=== PATIENT | female | born 1935 | race African-American/Black ===

== ENCOUNTER → 2016-09-16 10:25 | Outpatient (CLI) | payer MEDICARE, OTHER ==
[2014-04-19 10:01] VITALS: BMI 26.6
[~2016-09-16 10:25] MED LIST: CARAFATE1 G PO; ELIQUIS2.5 MG PO; FLORAJEN3 CAPS460 MG PO; HYDROCODONE-APA1 TAB PO; IPRAT-ALBUT 0.5-3 ML INH; OXYCODONE HCL5 MG PO; ROCEPHIN 1 GM/D51 G1 IV; TYLENOL W/CODEI1 TAB PO; VITAMIN D31000 UNI2 PO; VOLTAREN75 MG PO; ZOFRAN ODT4 MG/UDTAB PO
== END | disposition home or self-care (01) ==
LOC: D.LABREF 10:25
DX: M16.12 Unilateral primary osteoarthritis, left hip (principal); Z11.8 Encounter for screening for other infectious and parasitic diseases

== ENCOUNTER 2016-09-24 09:30 | Inpatient (IN) | payer MEDICARE, OTHER ==
[~2016-09-24] VITALS: Ht 160 cm; Wt 72.7 kg
[2016-09-24 09:11] LABS: BASOPHILS 0.3 % (0.0-2.0); EOSINOPHILS 2.7 % (0-7); HEMOGLOBIN 12.2 g/dL (12-16); IMMATURE GRANULOCYTES 0.3 % (0-5); LYMPHOCYTES 34.2 % (15-50); MCHC 31.3 g/dL (31.0-37.0); MCV 73.4 fL (80.0-100.0); MEAN PLATELET VOLUME 9.8 fL (7.4-10.4); MONOCYTES 6.4 % (2-11); NEUTROPHILS 56.1 % (40-80); PLATELET COUNT 238 10x3/uL (130-400); RBC 5.31 10x6/uL (4.00-5.40); RDW 15.6 % (11.5-14.5); WBC 7.8 10x3/uL (4.8-10.8)
[2016-09-24 09:21] LABS: CALC OSMOLALITY 278 mosm/kg (275-300); CALCIUM 8.5 mg/dL (8.5-10.1); CARBON DIOXIDE 26.9 mmol/L (21.0-32.0); CHLORIDE - SERUM 105 mmol/L (98-107); CREATININE - SERUM 0.7 mg/dL (0.6-1.3); GLUCOSE 94 mg/dL (74-106); POTASSIUM - SERUM 3.4 mmol/L (3.5-5.1); SODIUM 141 mmol/L (136-145); UREA NITROGEN 6 mg/dL (7-18); eGFR NON AFRICAN AMERICAN 85 mL/min (90-120)
[2016-09-24 09:23] LABS: APTT 28.3 SECONDS (22.8-39.4); INR 1.06 (0.85-1.17); PROTIME 13.7 SECONDS (11.6-15.0)
[2016-09-24 09:27] LABS: APPEARANCE CLEAR (CLEAR); BILIRUBIN NEGATIVE (NEGATIVE); COLOR STRAW (YELLOW); GLUCOSE NEGATIVE (NEGATIVE); KETONE NEGATIVE (NEGATIVE); LEUKOCYTE ESTERASE NEGATIVE (NEGATIVE); NITRITE NEGATIVE (NEGATIVE); PROTEIN NEGATIVE (NEGATIVE); SPECIFIC GRAVITY 1.005 (1.005-1.020); UROBILINOGEN NORMAL (NORMAL)
[~2016-09-24 09:30] MED LIST changes: -ELIQUIS2.5 MG PO; -FLORAJEN3 CAPS460 MG PO; -IPRAT-ALBUT 0.5-3 ML INH; -OXYCODONE HCL5 MG PO; -ROCEPHIN 1 GM/D51 G1 IV; -ZOFRAN ODT4 MG/UDTAB PO
[2016-09-29] VITALS (12 sets, daily range): BP systolic 80–114; BP diastolic 47–68; Ht 160 cm; Wt 72.7 kg
--- NOTE | 2016-09-29 10:49 | NUR ---
PEG BOARD POSITIONING DEVICE USED TO PLACE PT IN LAT. POSITION
--- NOTE | 2016-09-29 13:30 | NUR ---
PATIENT RECEIVED TO FLOOR FROM PACU VIA BED. PATIENT RESTING QUIETLY WITH EYES CLOSED. WAKES EASY WHEN SPOKE TO. VITAL SIGNS STABLE. SIDE RAILS UP X2. BED IN LOW POSITION. CALL LIGHT IN REACH. BED ALARM ON. SCDS ON BILATERALLY. DRESSING TO LEFT HIP CLEAN, DRY AND INTACT. ICE PACK IN PLACE.
--- NOTE | 2016-09-29 13:38 | NUR ---
SCHEDULED MEDICATION ADMINISTERED. FAMILY AT BEDSIDE. SIDE RAILS UP X2. BED IN LOW POSITION. CALL LIGHT IN REACH. BED ALARM ON.
[2016-09-29 13:50] LABS: HEMATOCRIT 31.2 % (36.0-48.0); HEMOGLOBIN 9.6 g/dL (12-16); MCH 22.7 pg (26.0-34.0); MCHC 30.8 g/dL (31.0-37.0); MCV 73.9 fL (80.0-100.0); MEAN PLATELET VOLUME 10.1 fL (7.4-10.4); RBC 4.22 10x6/uL (4.00-5.40); RDW 15.6 % (11.5-14.5); WBC 20.3 10x3/uL (4.8-10.8)
--- NOTE | 2016-09-29 14:08 | NUR ---
* Is the patient Alert and Oriented? Yes 0 * How many steps to enter\exit or inside your home? 4 0 * PCP Dr. Humphries 0 * [facility] * Preadmission Environment Home with Family 0 * ADLs Independent 0 * Equipment Shower Chair 0 * List name and contact numbers for known caregivers / representatives who currently or will assist patient after discharge: Spouse - Marshal Chapin 0 * Additional services required to return to the preadmission environment? Yes 0 * Can the patient safely return to the preadmission environment? Yes 0 * Has this patient been hospitalized within the prior 30 days at any hospital? No 09/29/2016 14:14 DCP: Discharge Planning Discharge Planning Comments: 09/29/2016 14:09 DCP: Discharge Planning Patient Name: TYSON CHAPIN Admission Status: Elective Accout number: [id number] Admission Date: 09-29-2016 : 1937 Admission Diagnosis: Attending: MARIUSZ Current LOS: 1 Anticipated DC Date: 09-29-2016 Planned Disposition: Outpatient PT\OT Primary Insurance: MEDICARE A & B Discharge Planning Comments: CM met with patient to assess dc plans/needs. Patient states she lives at home with her , Marshal. She reports she is independent with all ADL's & IADL's. She was not using any assistive devices for mobility. At dc, she will return home with her . She has chosen to come to [facility] for outpatient physical therapy. Appt. scheduled 10/05 @ 1045. OP PT Rx faxed. Rolling walker ordered through [facility] & will be delivered to the hospital prior to discharge. Anticipate DC 10/02. CM will follow. Library Circulation Technician: Maryann Tierney
--- NOTE | 2016-09-29 14:45 | NUR ---
PATIENT ALERT IN BED VISITING WITH FAMILY. C/O PAIN 02/28. OXY IR ADMINISTERED PER PRN ORDER. DENIES FURTHER NEEDS. SIDE RAILS UP X2. BED IN LOW POSITION. CALL LIGHT IN REACH. BED ALARM ON.
--- NOTE | 2016-09-29 17:20 | NUR ---
PATIENT ALERT IN BED TALKING ON PHONE. NO SIGNS OF DISTRESS NOTED. AT BEDSIDE. SIDE RAILS UP X2. BED IN LOW POSITION. CALL LIGHT IN REACH.
[2016-09-30] VITALS (19 sets, daily range): BP systolic 90–123; BP diastolic 40–76
[2016-09-30 06:30] LABS: HEMATOCRIT 23.6 % (36.0-48.0); HEMOGLOBIN 7.6 g/dL (12-16); MCH 23.5 pg (26.0-34.0); MCHC 32.2 g/dL (31.0-37.0); MCV 72.8 fL (80.0-100.0); MEAN PLATELET VOLUME 10.6 fL (7.4-10.4); RBC 3.24 10x6/uL (4.00-5.40); RDW 15.6 % (11.5-14.5); WBC 12.8 10x3/uL (4.8-10.8)
--- NOTE | 2016-09-30 07:00 | NUR ---
PATIENT RECEIVED ALERT IN LOW FELDER POSITION. RESPIRATIONS EVEN AND UNLABORED. SIDE RAILS UP X3. BED IN LOW POSITION. CALL LIGHT IN REACH. BED ALARM ON.
--- NOTE | 2016-09-30 07:28 | NUR ---
PATIENT ALERT IN BED. C/O PAIN 02/28. OXY IR ADMINISTERED PER PRN ORDER. NO FURTHER NEEDS VOICED. SIDE RAILS UP X2. BED IN LOW POSITION. CALL LIGHT IN REACH.
--- NOTE | 2016-09-30 09:04 | NUR ---
PATIENT SITTING UP IN CHAIR AT BEDSIDE VISITING WITH GUEST. NO SIGNS OF DISTRESS NOTED. SCHEDULED MEDICATION ADMINISTERED. NO FURTHER NEEDS VOICED. CALL LIGHT IN REACH.
--- NOTE | 2016-09-30 11:04 | NUR ---
Rehab Prescreening Consult recieved and the chart has been reviewed. She appears to be a good IRF candidate, but is only POD#1. She still has a PT eval pending. Rehab will continue to follow her progress. Doris Mcdaniel RN Clinical Liaison, Rehab
--- NOTE | 2016-09-30 11:45 | NUR ---
PATIENT SITTING UP IN CHAIR AT BEDSIDE. NO SIGNS OF DISTRESS NOTED. FAMILY PRESENT. CALL LIGHT IN REACH.
--- NOTE | 2016-09-30 13:25 | NUR ---
FIRST UNIT PRBC INITIATED PER ORDERS. TRANSFUSING TO RIGHT HAND WITHOUT DIFFICULTY. VITAL SIGNS STABLE. SIDE RAILS UP X2. BED IN LOW POSITION. CALL LIGHT IN REACH. BED ALARM ON. PRESENT
--- NOTE | 2016-09-30 15:25 | NUR ---
PRBC CONTINUES TO TRANSFUSE WITHOUT DIFFICULTY. VITAL SIGNS STABLE. IV TO RIGHT HAND PATENT. SIDE RAILS UP X3. BED IN LOW POSITION. CALL LIGHT IN REACH.
--- NOTE | 2016-09-30 15:55 | NUR ---
FIRST UNIT PRBC COMPLETE. VITAL SIGNS STABLE. WELL TOLERATED. DENIES NEEDS. BED IN LOW POSITION. CALL LIGHT IN REACH. SIDE RAILS UP X2
--- NOTE | 2016-09-30 16:55 | NUR ---
SECOND UNIT PRBC INITIATED. VITAL SIGNS STABLE. IV TO RIGHT HAND PATENT. NO REDNESS OR INFLAMMATION NOTED. SIDE RAILS UP X2. BED IN LOW POSITION. CALL LIGHT IN REACH.
--- NOTE | 2016-09-30 18:00 | NUR ---
ALERT IN BED. TOLERATED DINNER WELL. PRBC TRANSFUSING WITHOUT DIFFICULTY. VITAL SIGNS STABLE. SIDE RAILS UP X2. BED IN LOW POSITION. CALL LIGHT IN REACH. PRESENT.
--- NOTE | 2016-09-30 18:54 | NUR ---
OT NOTE: PT COMPLETED BED MOB WITH KAYLIE Barnes. PT COMPLETED BUE GROSS MOTOR SKILLS TO INCREASE BED MOB. THANK YOU, DESHAUN COYLE/Isabelle
--- NOTE | 2016-09-30 19:00 | NUR ---
BEDSIDE REPORT RECEVIED AND CARE OF PT ASSUMED. PT LYING IN SEMI FELDER'S POSITION WITH EYES CLOSED AND UNLABORED RESPIRATIONS. PRBC'S INFUSING. VITALS STABLE AND PT IS AFEBRILE. WILL MONITOR CLOSELY FOR NEEDS.
--- NOTE | 2016-09-30 20:33 | NUR ---
HS MEDICATIONS GIVEN TO INCLUDE TRAZADONE PER PRN ORDER FOR SLEEP. ASSISTED PT TO USE BEDPAN TO VOID. POSITIONED FOR COMFORT. WILL CONTINUE TO MONITOR FOR NEEDS.
--- NOTE | 2016-09-30 20:35 | NUR ---
PRBC'S INFUSION COMPLETE. VITALS REMAIN STABLE AND PT IS AFEBRILE. FLUSHING LINES.
--- NOTE | 2016-09-30 21:00 | NUR ---
ZACHERY CROWLEY FOR HS SNACK. WILL CONTINUE TO MONITOR FOR NEEDS.
[2016-10-01] VITALS: BP 113/47
--- NOTE | 2016-10-01 01:00 | NUR ---
TEACHING DONE ON IS, DEEP BREATHING, AND COUGHING.
--- NOTE | 2016-10-01 01:35 | NUR ---
GAVE OXI IR X2 PO PER PRN ORDER FOR C/O PAIN AT LEVEL 8/10. WILL MONITOR FOR EFFECTIVENESS. SIDE RAILS UP X2 FOR SAFETY.
[2016-10-01 04:00] VITALS: BP 110/67
[2016-10-01 05:08] LABS: BASOPHILS 0.1 % (0.0-2.0); EOSINOPHILS 2.5 % (0-7); IMMATURE GRANULOCYTES 0.7 % (0-5); LYMPHOCYTES 19.4 % (15-50); MCH 25.6 pg (26.0-34.0); MCHC 33.3 g/dL (31.0-37.0); MEAN PLATELET VOLUME 10.2 fL (7.4-10.4); NEUTROPHILS 70.3 % (40-80); RDW 17.3 % (11.5-14.5); WBC 13.6 10x3/uL (4.8-10.8)
[2016-10-01 05:10] LABS: HEMATOCRIT 30.9 % (36.0-48.0); HEMOGLOBIN 10.3 g/dL (12-16); MCV 76.9 fL (80.0-100.0); PLATELET COUNT 146 10x3/uL (130-400); RBC 4.02 10x6/uL (4.00-5.40)
[2016-10-01 05:20] LABS: ANION GAP 12.5 mmol/L (8-16); CALCIUM 8.4 mg/dL (8.5-10.1); CARBON DIOXIDE 27.3 mmol/L (21.0-32.0); CREATININE - SERUM 1.1 mg/dL (0.6-1.3); POTASSIUM - SERUM 3.8 mmol/L (3.5-5.1)
--- NOTE | 2016-10-01 06:15 | NUR ---
GAVE OXY IR X2 PO PER PRN ORDER FOR C/O PAIN AT LEVEL 8/10. WILL MONITOR FOR EFFECTIVENESS. SIDE RAILS UP X2 FOR SAFETY.
--- NOTE | 2016-10-01 07:00 | NUR ---
REPORT RECIEVED ASSUMED CARE. PATIENT IN BED WITH IV INTACT. NO COMPLAINTS AT THIS TIME. CALL LIGHT WITHIN REACH.
--- NOTE | 2016-10-01 07:26 | CN ---
PATIENT NAME:TYSON CHAPNI MEDICAL RECORD: [id number] : 37 LOCATION:[facility] ADMIT DATE: 09/29/16 ACCOUNT: [id number] CONSULTING PHYSICIAN: ELISABET KIRK DO REFERRING PHYSICIAN: JEREL FUENTES MD DATE OF CONSULTATION: 09/30/2016 HISTORY OF PRESENT ILLNESS: A 81-year-old -[place] female admitted to Dr. Fuentes for hip replacement, consult for medical management, insomnia, iron deficiency anemia, hyperlipidemia, and depression. PAST SURGICAL HISTORY: Appendectomy, hysterectomy, cholecystectomy, ankle fracture and repair and recent hip replacement this hospitalization. SOCIAL HISTORY: Nonsmoker. REVIEW OF SYSTEMS: CONSTITUTIONAL: No acute change in weight or appetite. HEENT: No cephalgia, visual changes, tinnitus, epistaxis, or dysphagia. CARDIOVASCULAR: Denies chest pain. Denies palpitations. PULMONARY: Denies hemoptysis. GASTROINTESTINAL: Denies hematemesis, hematochezia, or melena. GENITOURINARY: Denies dysuria. MUSCULOSKELETAL: No acute changes. ENDOCRINE: Denies polyuria, polydipsia, or polyphagia. The patient does have difficulty with sleep. MEDICATIONS: Per med rec. PHYSICAL EXAMINATION: VITAL SIGNS: Temperature 98.1, blood pressure is 102/52, heart rate 90, respirations 18, and O2 sats 96% on room air. GENERAL: Alert and oriented, no present distress. HEENT: Head is normocephalic and atraumatic. Eyes: Pupils are equally round and reactive to light and accommodation. Extraocular muscles intact. Conjunctiva was not injected. Ears: Canals patent, TMs are intact. Nose: Nares patent without drainage. Throat: No erythema. No exudates. NECK: Supple. No lymphadenopathy. No JVD. HEART: Regular rate and rhythm. No S3 or S4. No rub. LUNGS: Clear to auscultation bilaterally. Breathing is nonlabored. ABDOMEN: Soft and nontender. Bowel sounds all 4 quadrants. EXTREMITIES: Present times 4. No edema. NEUROLOGIC: Intact. LABORATORY DATA: CBC: White count 12.8, hemoglobin 7.6, hematocrit 23.6, hemoglobin on admission was 12.2, and platelets 191. ASSESSMENT AND PLAN: 1. Status post total hip. 2. Postoperative anemia, hypotensive, type, cross, and transfuse 2 units. Monitor. 3. Insomnia. Trazodone 50 mg at bedtime p.r.n., supportive care. 4. Gastroesophageal reflux disease. Pantoprazole 40 mg daily. I appreciate this consult. We will follow accordingly. CONSULT REPORT [id number] TYSON CHAPIN TRANSSEE:[id number] Voice Confirmation ID: [id number] DOCUMENT ID: [id number] ELISABET KIRK DO at 0726 CC: [id number] DICTATION DATE: 09/30/1644 CONSTRUCTION OR LEAK GANG LABORER: 09/30/16 1522 ADM IN [facility] [address] [id number]
--- NOTE | 2016-10-01 07:49 | OP ---
PATIENT NAME: TYSON CHAPIN MEDICAL RECORD: [id number] :37 LOCATION:[facility] ADMISSION DATE:09/29/16 SURGEON: JEREL FUENTES MD DATE OF OPERATION: 09/29/2016 PREOPERATIVE DIAGNOSIS: Left hip degenerative joint disease. POSTOPERATIVE DIAGNOSIS: Left hip degenerative joint disease. PROCEDURE PERFORMED: Left total hip arthroplasty using Biomet. SURGEON: Benton Fuentes MD. ANESTHESIA: General with a block for postop pain. CONDITION: The patient tolerated the procedure well, was transferred to recovery room in stable condition at termination of the procedure. INDICATIONS: This is a 81-year-old female with advanced degenerative changes of her left hip. She is no longer tolerating nonoperative treatments including injections, medications and therapy. She wants to proceed with a total hip arthroplasty. We discussed risks, benefits and alternatives including blood loss, scar, pain, need for further procedure, anesthesia risk, nerve, artery and vein injuries and infections, leg length discrepancy and failure of the components. She understood and wished to proceed. OPERATIVE REPORT: The patient was taken to the operating room and placed in supine position. General anesthesia was obtained. She did get a block in the preop holding area. In the operating room, she was placed in a lateral position with her left hip up, positioned with the hip positioner. The left hip was prepped and draped in normal fashion. She did receive Ancef per protocol. After the initial prep and drape, she had a secondary ChloraPrep and Ioban dressing placement. Once this was accomplished, a lateral incision was made. This was taken down. The IT band was identified and split. The anterior portion of the gluteus medius and capsule were taken off as a unit. I then proceeded to dislocate the hip and removed the femoral head based on the femoral cutting guide. Anterior and posterior acetabular retractors were placed. The soft tissue rim was removed. I then sequentially reamed up to a 51. This had very good fit. Therefore, I went ahead and placed a 52 press fit cup. Once this was accomplished, I tool the leg off the side of the bed into a bag, did a cookie cutter, followed by canal finder. I then broached up to 14. This felt very tight. I therefore placed the standard head and neck, reduced it and took AP film in the operating room intraoperatively. Films appeared to show the lengths to be correct and good fill of the stem and positioning of the cup. I therefore took everything out, copiously irrigated and placed the final 14 standard stem with a 52 cup and 46 head. This was placed and reduced. The soft tissue tension also felt appropriate. She was copiously irrigated and the capsule and the gluteus medius were brought back with 2 JuggerKnot suture anchors. I then closed the IT band with a #1 double-stranded PDS. I then closed with 2-0 Vicryl and then prasanna. She was placed in soft dressing, awakened and transferred to the recovery room in stable condition having tolerated the procedure well. TRANSINT:[id number] Voice Confirmation ID: [id number] DOCUMENT ID: [id number] OPERATIVE REPORT [id number] TYSON CHAPIN, JEREL VEGA MD at 0749 CC: [id number] DICTATION DATE: 09/29/16 1217 SLIVER FORMER: 09/29/16 1847 ADM IN [facility] [address] [place] [address]
[2016-10-01 07:50] VITALS: BP 131/55
--- NOTE | 2016-10-01 08:15 | NUR ---
ASSESSMENT COMPLETE, VS STABLE. IV INTACT. NO COMPLAINTS AT THIS TIME. DRESSING TO HIP CLEAN AND DRY. CALL LIGHT WITHIN REACH.
--- NOTE | 2016-10-01 09:05 | NUR ---
PATIENT UP WITH PT AT THIS TIME.
--- NOTE | 2016-10-01 11:33 | NUR ---
Rehab Note- Spoke with patient and family member present in room. The patient is very interested in [facility] IRF when discharged from the acute hospital. Will plan to admit to [facility] IR[facility] when discharged. Spoke with AMBER Bush. Will continue to follow at this time. Thank you for this referral! Katrina Perry RN Clincal Liaison, [facility] Rehab/[place]
[2016-10-01 11:41] VITALS: BP 118/54
--- NOTE | 2016-10-01 12:30 | NUR ---
PATIENT SITTING UP IN CHAIR WITH IV INTACT. NO COMPLAINTS AT THIS TIME. STATED SHE DOESNT FEEL LIKE EATING MUCH. GAVE ZOFRAN AND TYLENOL. FAMILY AT BEDSIDE. CALL LIGHT WITHIN REACH.
--- NOTE | 2016-10-01 13:13 | NUR ---
10/01/2016 13:09 DCP: Discharge Planning POC discussed with interdisciplinary team - patient progressing slower than anticipated. Inpatient rehab has evaluated patient & is a good candidate for transfer. Discussed with patient & spouse - they are agreeable. Anticipate transfer 10/02. CM will follow.
[2016-10-01 15:09] VITALS: BP 116/68
--- NOTE | 2016-10-01 15:30 | NUR ---
PATIENT IN BED WITH EYES OPEN, NO COMPLAINTS. CALL LIGHT WITHIN REACH.
--- NOTE | 2016-10-01 18:24 | NUR ---
OT NOTE: PT COMPLETED BUE AROM IN ALL PLANES FOR INCREASED AX TOLERANCE. PT COMPLETED POSITIONING FOR DECREASED PAIN. THANK YOU, DESHAUN COYLE/Isabelle
--- NOTE | 2016-10-01 18:45 | NUR ---
PATIENT IN BED WITH EYES OPEN. STATED FEELING BETTER. NO BM BUT PASSING GAS. IV INTACT. CALL LIGHT WITHIN REACH.
--- NOTE | 2016-10-01 19:00 | NUR ---
BEDSIDE REPORT RECEIVED AND CARE OF PT ASSUMED. PT LYING IN SEMI FELDER'S POSITION VISITING WITH FAMILY MEMBER. DRESSING ON LEFT HIP CLEAN AND DRY. IV IN RIGHT HAND SALINE LOCKED. WILL MONITOR CLOSEY FOR NEEDS. CALL LIGHT WITHIN REACH.
--- NOTE | 2016-10-01 20:50 | NUR ---
HS MEDICATIONS GIVEN TO INCLUDE OXY IR PER PT REQUEST FOR SEVERE PAIN. WILL MONITOR FOR EFFECTIVENESS.
--- NOTE | 2016-10-01 22:00 | NUR ---
GAVE SCHEDULED TYLENOL EARLY PT HAS ELEVATED TEMP OF 100.3 DEGREES. WILL MONITOR FOR EFFECTIVENESS.
[2016-10-01 23:39] VITALS: BP 106/54
--- NOTE | 2016-10-01 23:43 | NUR ---
PT RESTING QUIETLY IN SUPINE POSITION, TURNED ONTO RIGHT SIDE PROPPED WITH PILLOW. WILL CONTINUE TO MONITOR FOR NEEDS.
[2016-10-02 03:38] VITALS: BP 111/52
[2016-10-02 05:24] LABS: BASOPHILS 0.1 % (0.0-2.0); EOSINOPHILS 1.9 % (0-7); HEMATOCRIT 27.8 % (36.0-48.0); HEMOGLOBIN 9.2 g/dL (12-16); IMMATURE GRANULOCYTES 0.6 % (0-5); LYMPHOCYTES 17.7 % (15-50); MCH 25.6 pg (26.0-34.0); MCHC 33.1 g/dL (31.0-37.0); MCV 77.2 fL (80.0-100.0); MEAN PLATELET VOLUME 10.5 fL (7.4-10.4); MONOCYTES 8.2 % (2-11); NEUTROPHILS 71.5 % (40-80); PLATELET COUNT 162 10x3/uL (130-400); RDW 18.2 % (11.5-14.5); WBC 11.1 10x3/uL (4.8-10.8)
--- NOTE | 2016-10-02 07:00 | NUR ---
REPORT RECIEVED ASSUMED CARE. PATIENT IN BED WITH EYES CLOSED RESTING QUIETLY. NO COMPLAINTS AT THIS TIME. CALL LIGHT WITHIN REACH.
[2016-10-02 08:18] VITALS: BP 103/47
[2016-10-02] MEDS ORDERED: IPRAT-ALBUT 0.5-3 ML INH (08:57)
[2016-10-02] MEDS ORDERED: OXYCODONE HCL5 MG PO (08:57)
[2016-10-02] MEDS ORDERED: ELIQUIS2.5 MG PO (08:57)
[2016-10-02] MEDS ORDERED: ROCEPHIN 1 GM/D51 G1 IV (08:57)
[2016-10-02] MEDS ORDERED: ZOFRAN ODT4 MG/UDTAB PO (08:58)
[2016-10-02] MEDS ORDERED: FLORAJEN3 CAPS460 MG PO (08:58)
--- NOTE | 2016-10-02 11:12 | NUR ---
10/02/2016 11:10 DCP: Discharge Planning Spoke with Doris with rehab - patient has been accepted and can transfer this afternoon. Waiting bed assignment.
[2016-10-02 13:02] VITALS: BP 104/51
--- NOTE | 2016-10-02 13:28 | NUR ---
PATIENT ESCORTED DOWN TO PRIVATE VEHICLE WITH PERSONAL BELONGINGS BY HOSPITAL VOLUNTEER.
--- NOTE | 2016-10-02 14:35 | NUR ---
PATIENT IN BED EYES CLOSED RESTING QUIETLY AT THIS TIME. IV INTACT. BSCDS ON AND WORKING. CALL LIGHT WITHIN REACH.
--- NOTE | 2016-10-02 16:30 | NUR ---
PATIENT RECIEVED DC INSTRUCTIONS. NO QUESTIONS AT THIS TIME. REPORT CALLED TO ELVIA IN REHAB. CALL LIGHT WITHIN REACH. GOING TO REHAB AFTER DINNER.
[2016-10-02 16:31] VITALS: BP 110/53
--- NOTE | 2016-10-02 18:15 | NUR ---
PATIENT TAKEN TO REHAB VIA WC WITH PERSONAL BELONGINGS BY CUPOLA WORKER AT THIS TIME.
== END 2016-10-02 19:03 | DRG 470 ==
LOC: D.SDCHOLD 09:30 → D.MS 09-29 06:32 → D.SDCHOLD 09-29 09:30 → D.MS 09-29 13:00
PROVIDERS: Family Medicine; ADMIT Orthopaedic Surgery Sports Medicine
PROC: 0SRB0JA Replacement of Left Hip Joint with Synthetic Substitute, Uncemented, Open Approach (ICD-10-PCS; principal; 2016-09-29 07:30)
DX: M16.12 Unilateral primary osteoarthritis, left hip (principal); D62 Acute posthemorrhagic anemia; G47.00 Insomnia, unspecified; E78.5 Hyperlipidemia, unspecified; D64.9 Anemia, unspecified; K21.9 Gastro-esophageal reflux disease without esophagitis; R09.89 Other specified symptoms and signs involving the circulatory and respiratory systems

== ENCOUNTER 2016-10-02 12:15 | Inpatient (IN) | payer MEDICARE, OTHER ==
[~2016-10-02] VITALS: Ht 157.5 cm; Wt 68.0 kg
[~2016-10-02 12:15] MED LIST changes: +ELIQUIS2.5 MG PO; +FLORAJEN3 CAPS460 MG PO; +IPRAT-ALBUT 0.5-3 ML INH; +OXYCODONE HCL5 MG PO; +ROCEPHIN 1 GM/D51 G1 IV; +ZOFRAN ODT4 MG/UDTAB PO
--- NOTE | 2016-10-02 19:20 | NUR ---
PT REPORTED TO HAVE ARRIVED TO UNIT AT 1823 VIA WHEELCHAIR WITH FAMILY AND HOSPITAL STAFF. ASSISTED WITH TRANSFER TO BED. PT RECEIVED IN BED WITH FAMILY IN ROOM AT BEDSIDE VISITING WITH PT. WILL CONTINUE TO OBSERVE. CALL LIGHT IN REACH.
[2016-10-02 22:37] VITALS: BP 104/50
--- NOTE | 2016-10-03 06:41 | NUR ---
PT UP IN WHEELCHAIR AT THIS TIME WITH PHYSICAL THERAPY. PRN PAIN MEDICATION GIVEN PRIOR TO PHYSICAL THERAPY. NO OTHER CONCERNS NOTED AT THIS TIME. WILL CONTINUE TO OBSERVE.
[2016-10-03 07:00] VITALS: BP 93/59
[2016-10-03 07:06] LABS: BASOPHILS 0.1 % (0.0-2.0); EOSINOPHILS 1.8 % (0-7); HEMATOCRIT 29.4 % (36.0-48.0); HEMOGLOBIN 9.4 g/dL (12-16); IMMATURE GRANULOCYTES 0.7 % (0-5); LYMPHOCYTES 17.7 % (15-50); MCH 25.1 pg (26.0-34.0); MCV 78.6 fL (80.0-100.0); MEAN PLATELET VOLUME 10.6 fL (7.4-10.4); MONOCYTES 9.1 % (2-11); NEUTROPHILS 70.6 % (40-80); RBC 3.74 10x6/uL (4.00-5.40); WBC 10.7 10x3/uL (4.8-10.8)
[2016-10-03 07:07] LABS: PLATELET COUNT 198 10x3/uL (130-400)
[2016-10-03 07:12] LABS: CALC OSMOLALITY 276 mosm/kg (275-300); CALCIUM 8.1 mg/dL (8.5-10.1); CARBON DIOXIDE 31.9 mmol/L (21.0-32.0); CHLORIDE - SERUM 101 mmol/L (98-107); CREATININE - SERUM 0.7 mg/dL (0.6-1.3); GLUCOSE 108 mg/dL (74-106); POTASSIUM - SERUM 3.9 mmol/L (3.5-5.1); SODIUM 139 mmol/L (136-145); UREA NITROGEN 7 mg/dL (7-18); eGFR NON AFRICAN AMERICAN 85 mL/min (90-120)
--- NOTE | 2016-10-03 07:19 | NUR ---
RESTING QUIETLY IN BED CALL ANASTASIYA CORCORAN
[2016-10-03 10:09] VITALS: BMI 27.4
--- NOTE | 2016-10-03 18:10 | NUR ---
LAYING QUIETLY IN BED. FAMILY HAS STAYED WITH PT ALL DAY SO FAR. SHE C/O INCREASED PAIN WITH SLIGHTEST MOVEMENT. HAS USED BEDPAN TODAY DUE TO RECOMMENDATIONS FROM THERAPIST THAT SHE IS VERY WEAK AND AN INCREASED FALLS RISK
--- NOTE | 2016-10-03 18:27 | NUR ---
STILL HAVEING SOME SEROUS DRAINAGE FROM AROUND ALONSO. DRESSING CHANGED. NO S/S INFECTION NOTED.
[2016-10-03 19:19] VITALS: BP 122/52
--- NOTE | 2016-10-03 19:40 | NUR ---
PT. IN BED WITH HOB UP FOR COMFORT AND HAS VISITORS IN THE ROOM. ASSESSMENT COMPLETED AND HAS NO VOICED NEEDS AT THIS TIME. CALL LIGHT WITHIN REACH.
--- NOTE | 2016-10-03 22:14 | NUR ---
PT. IN BED WITH HOB UP FOR COMFORT AND IS WATCHING TV. NO VOICED NEEDS AT THIS TIME AND HER CALL LIGHT IS WITHIN REACH.
--- NOTE | 2016-10-04 01:05 | NUR ---
PT. IN BED WITH HOB UP FOR COMFORT. EYES ARE CLOSED AND RESP. EVEN. CALL LIGHT WITHIN REACH.
--- NOTE | 2016-10-04 03:30 | NUR ---
AFTER GIVING PT. HER PAIN MEDICATION I CHECKED HER LEFT HIP DRESSING AND IT HAS SATURATED THE DRESSING AND ONLY HER PINK PAD. REMOVED OLD DRESSING AND APPLIED A NEW MEPILEX AG BORDER DRESSING AND REINFORCED WITH 4X4'S AND SECURED WITH MEDIPORE TAPE. PT. TOLERATED PROCEDURE WITH MINIMAL DISCOMFORT. CHANGED PINK UNDERPAD AND POSITIONED PT. TO COMFORT. CALL LIGHT WITHIN REACH.
[2016-10-04 07:00] VITALS: BP 118/67
--- NOTE | 2016-10-04 07:30 | NUR ---
RESTING IN BED WITH EYES CLOSED. SIDE RAILS UP. NO S/S DISTRESS. CALL LIGHT IN REACH
--- NOTE | 2016-10-04 13:54 | NUR ---
ATE LUNCH THEN LAYED BACK DOWN IN BED. HAS NOT SAT UP IN W/C TODAY WHEN OFFERED STATING SHE WANTS TO REST AND NAP INSTEAD.
[2016-10-04 19:00] VITALS: BP 124/68
--- NOTE | 2016-10-04 19:55 | NUR ---
PT. IN BED WITH HOB UP FOR COMFORT AND IS WATCHING TV. SPOUSE IS PRESENT. ASSESSMENT COMPLETED. PT. STILL TRYING TO GET COMFORTABLE IN BED WITH ADJUSTING LLE PILLOWS/BLANKETS. PT. REQUESTING PAIN MEDICATION SO THAT HER PAIN WON'T GET OUT OF CONTROL. WILL ADMIN. PAIN MEDS. NO OTHER VOICED NEEDS AT THIS TIME AND SHE HAS HER CALL LIGHT WITHIN REACH.
[2016-10-04 21:35] VITALS: BP 116/66
--- NOTE | 2016-10-04 22:33 | NUR ---
PT. IN BED WITH HOB UP FOR COMFORT WITH EYES CLOSED AND RESP. EVEN. LLE REMAINS ELEVATED WITH PILLOW/BLANKETS.
--- NOTE | 2016-10-05 01:28 | NUR ---
PT. IN BED WITH HOB UP FOR COMFORT WITH EYES CLOSED AND RESP. DEEP AND EVEN. CALL LIGHT REMAINS WITHIN REACH.
--- NOTE | 2016-10-05 03:23 | NUR ---
PT. IN BED WITH HOB UP AND NEEDING BEDPAN TO URINATE. ASSISTED WITH BEDPAN PLACEMENT. PT. VOIDED APPROX. 150CC'S YELLOW URINE WITHOUT ANY PROBLEMS. ASSISTED PT. WITH POSITIONING TO COMFORT. CALL LIGHT WITHIN REACH.
[2016-10-05 07:20] LABS: BASOPHILS 0.2 % (0.0-2.0); EOSINOPHILS 1.6 % (0-7); HEMATOCRIT 32.2 % (36.0-48.0); HEMOGLOBIN 10.3 g/dL (12-16); IMMATURE GRANULOCYTES 2.1 % (0-5); LYMPHOCYTES 18.2 % (15-50); MCH 25.4 pg (26.0-34.0); MCV 79.3 fL (80.0-100.0); MEAN PLATELET VOLUME 10.2 fL (7.4-10.4); MONOCYTES 9.3 % (2-11); NEUTROPHILS 68.6 % (40-80); RBC 4.06 10x6/uL (4.00-5.40); RDW 19.3 % (11.5-14.5); WBC 12.2 10x3/uL (4.8-10.8)
[2016-10-05 07:22] LABS: PLATELET COUNT 295 10x3/uL (130-400)
[2016-10-05 07:31] LABS: CALC OSMOLALITY 270 mosm/kg (275-300); CALCIUM 8.8 mg/dL (8.5-10.1); CARBON DIOXIDE 29.4 mmol/L (21.0-32.0); CHLORIDE - SERUM 98 mmol/L (98-107); CREATININE - SERUM 0.7 mg/dL (0.6-1.3); GLUCOSE 113 mg/dL (74-106); SODIUM 136 mmol/L (136-145); UREA NITROGEN 8 mg/dL (7-18); eGFR NON AFRICAN AMERICAN 85 mL/min (90-120)
--- NOTE | 2016-10-05 08:00 | NUR ---
SHIFT ASSMT COMPLETED.DENIES NEEDS.CL IN REACH.
[2016-10-05 09:21] VITALS: BP 128/55
--- NOTE | 2016-10-05 12:12 | RHP ---
PATIENT: TYSON CHAPIN MEDICAL RECORD: [id number] ACCOUNT: [id number] LOCATION:[facility]1116 : 37 ADMISSION DATE: 10/02/16 REHABILITATION HISTORY AND PHYSICAL EXAMINATION POST ADMISSION PHYSICIAN EXAMINATION DATE OF ADMISSION: 10/02/2016 ADMITTING DIAGNOSES: Left hip fracture, status post repair, postoperative blood loss and postoperative ____. HISTORY OF PRESENT ILLNESS: The patient is admitted to inpatient rehab from a left total hip arthroplasty with postop complications, acute blood loss anemia and hypotension. She is a 81-year-old female patient admitted for a left total hip due to a left hip DJD and increased pain. She is no longer tolerating nonoperative treatments including injections or medication therapy. She has some postop complications including postop anemia and hypotension. She received 2 units of packed red blood cells on September 30. She has had increased pain. She has had multiple falls due to her left hip pain. She was independent with ADLs and mobility prior to her acute hospitalization and is currently min assist to max assist for ADLs and mod assist to total assist for mobility. She would definitely benefit from inpatient rehab to get back to her prior level of functioning. COMORBIDITIES: In this patient include postoperative pain, postoperative anemia, hypotension, insomnia, gastroesophageal reflux disease, constipation, left hip DJD. PAST MEDICAL HISTORY: Significant for left hip DJD, insomnia, iron deficiency anemia, hyperlipidemia and depression. PAST SURGICAL HISTORY: Includes appendectomy, hysterectomy, cholecystectomy, right ankle fracture and repair back in 1979. She has also had cataract surgery. ALLERGIES: No known drug allergies. CURRENT MEDICATIONS: Include DuoNeb updrafts q.i.d. p.r.n. She is on vitamin D 1000 units daily. She is on Carafate 1 g daily p.r.n. She is on Rocephin 1 g q.24 hours. She is on ____ mg daily, Zofran 4 mg q.4 hours p.r.n. nausea and vomiting, oxycodone 10 mg q.4 hours p.r.n., Eliquis 2.5 mg b.i.d. and MiraLax 17 grams in 8 ounces of water daily. HABITS: No alcohol or tobacco use. FAMILY HISTORY: Noncontributory. SOCIAL HISTORY: The patient hopes to return back home with her . She lives here in [place]. REVIEW OF SYSTEMS: GENERAL: Does complain of weakness. HEENT: Denies cold, cough or congestion. CARDIOVASCULAR: Denies chest pain. HISTORY AND PHYSICAL [id number] TYSON CHAPIN PHYSICAL EXAMINATION: VITAL SIGNS: Stable, afebrile. GENERAL: A well-developed female, in no acute distress, alert upon exam. HEENT: Normocephalic, atraumatic. Mucosa moist. NECK: Supple. No lymphadenopathy. LUNGS: Clear at this time. HEART: Regular rate and rhythm. ABDOMEN: Benign. EXTREMITIES: No clubbing, cyanosis or edema. She does have changes consistent with hip surgery. NEUROLOGIC: Intact. LABORATORY DATA: Her white count is 10.7, H&H 9.4 and 29.4, and platelet count was noted to be 198. Her sodium is 139, potassium 3.9, BUN and creatinine of 7 and 0.7, blood sugar is noted to be 108. ASSESSMENT: This is a 81-year-old female patient admitted to rehab with a working diagnosis of status post left total hip arthroplasty with postop blood loss anemia and complications. The patient has potential to make improvement. We instituted the following multidisciplinary therapies including, but not limited to physical, occupational, respiratory, speech, nutritional services, prosthetics and orthotics. Given her complex condition and risk for more complications, rehabilitation services cannot be provided at a lower level of care such as a [facility] facility. PLAN: 1. Admit to [facility] rehab for intensive inpatient therapy to include the following disciplines: A. Physical therapy to improve gait, all transfer skills and bed mobility to a modified independent level. B. Occupational therapy to improve activities of daily living to a modified independent level. C. Case management to assist with discharge planning and placement options. D. Nutrition to assist with nutritional needs. E. Rehabilitation nursing to assist in monitoring the patient's underlying medical conditions and to assist with any type of bowel or bladder management. 2. The patient's current medications and medical care will be continued. 3. The patient will be placed on standard fall precautions. 4. The patient's estimated length of stay is approximately 7-10 days. 5. We will go ahead and discuss this patient during care team staff meeting this week. TRANSINT:[id number] Voice Confirmation ID: [id number] DOCUMENT ID: [id number] TEZ LEON MD at 1212 CC: [id number] DICTATION DATE: 10/03/16 1554 PRIVATE TUTORS AND TEACHERS: 10/03/162055 ADM IN [place] [id number] [place] [id number]
--- NOTE | 2016-10-05 21:44 | NUR ---
LEFT HIP DRESSING CHANGED. CLEANSED WITH WOUND SPRAY AND 4X4'S. PACKED WITH 4X4'S AND ISLAND DRESSING APPLIED ON TOP. ALONSO INTACT AND INCISION SITE SHOWS NO S&S OF INFECTION. BRUISING ON LEFT HIP AROUND INCISION. PT TOLERATED PROCEDURE WELL.
--- NOTE | 2016-10-05 22:00 | NUR ---
LEFT HAND SALINE LOCK FLUSHES EASILY. PT TOLERATED PROCEDURE WELL.
--- NOTE | 2016-10-06 02:00 | NUR ---
PT IN BED WITH HOB UP FOR COMFORT, EYES CLOSED, CHEST RISING AND FALLING, BED IN LOWEST POSITION AND CALL LIGHT WITHIN REACH.
--- NOTE | 2016-10-06 04:00 | NUR ---
IN BED, EYES CLOSED.
--- NOTE | 2016-10-06 05:07 | NUR ---
PT LYING IN BED, RESTING QUIETLY.
[2016-10-06 08:00] VITALS: BP 125/61
--- NOTE | 2016-10-06 08:00 | NUR ---
SHIFT ASSMT COMPLETED.DENIES NEEDS.
[2016-10-06 14:21] VITALS: Ht 157.5 cm; Wt 68.0 kg
--- NOTE | 2016-10-06 16:00 | NUR ---
NO RESULTS FROM MOM;WILL CONTINUE MEDS ORDERED.
--- NOTE | 2016-10-06 19:30 | NUR ---
PT RECEIVED IN BED WITH EYES OPEN VISITING WITH AT BEDSIDE. STATES PAIN LEVEL 7/10 ON REASSESSMENT OF PRN PAIN MEDICATION GIVEN PRIOR TO BEGINNING OF SHIFT. NO OTHER NEEDS OR CONCERNS MADE KNOWN. CALL LIGHT IN REACH.
[2016-10-06 20:13] VITALS: BP 144/70
--- NOTE | 2016-10-07 01:27 | NUR ---
PT IN BED WATCHING TV. ASSIST TO TOILET AND RETURNED TO BED. SMALL BM NOTED. PT CONTINUES PAIN LEVEL OF 7/10 WITH PRN PAIN MEDICATION AND MILK OF MAG. GIVEN. NO OTHER CONCERNS NOTED. CALL LIGHT IN REACH.
[2016-10-07 06:15] LABS: BASOPHILS 0.3 % (0.0-2.0); EOSINOPHILS 1.6 % (0-7); HEMATOCRIT 30.2 % (36.0-48.0); HEMOGLOBIN 9.4 g/dL (12-16); IMMATURE GRANULOCYTES 1.8 % (0-5); LYMPHOCYTES 17.6 % (15-50); MCH 24.9 pg (26.0-34.0); MCHC 31.1 g/dL (31.0-37.0); MCV 79.9 fL (80.0-100.0); MEAN PLATELET VOLUME 9.8 fL (7.4-10.4); MONOCYTES 9.1 % (2-11); NEUTROPHILS 69.6 % (40-80); RBC 3.78 10x6/uL (4.00-5.40); RDW 19.1 % (11.5-14.5)
[2016-10-07 06:29] LABS: PLATELET COUNT 396 10x3/uL (130-400)
[2016-10-07 07:08] LABS: CALC OSMOLALITY 265 mosm/kg (275-300); CALCIUM 8.9 mg/dL (8.5-10.1); CARBON DIOXIDE 31.1 mmol/L (21.0-32.0); CHLORIDE - SERUM 94 mmol/L (98-107); CREATININE - SERUM 0.7 mg/dL (0.6-1.3); GLUCOSE 125 mg/dL (74-106); POTASSIUM - SERUM 4.3 mmol/L (3.5-5.1); SODIUM 133 mmol/L (136-145); UREA NITROGEN 10 mg/dL (7-18); eGFR NON AFRICAN AMERICAN 85 mL/min (90-120)
--- NOTE | 2016-10-07 07:30 | NUR ---
SITTING UP IN BED, EYES CLOSED. CALL LIGHT IN REACH.
[2016-10-07 10:27] VITALS: BP 108/83
--- NOTE | 2016-10-07 12:40 | NUR ---
SITTING UP IN BED EATING LUNCH. IN ROOM WITH PT. SHE NEEDS MIN TO MOD ASST TO TRANSFER TO W/C. SHE IS CONTINENT OF BOWEL AND BLADDER. PAIN CONTROLLED WITH CURRENT MEDS.
--- NOTE | 2016-10-07 17:49 | NUR ---
LAYING DOWN IN BED. HAD SUPPER AND HAD LARGE BM. IN ROOM.
[2016-10-07 19:15] VITALS: BP 104/55
--- NOTE | 2016-10-07 19:25 | NUR ---
PT. IN BED WITH HOB UP FOR COMFORT AND LLE ELEVATED UP ON BLANKET. SPOUSE VISITING WITH PT. ASSESSMENT COMPLETED. NO VOICED NEEDS AT THIS TIME AND SHE HAS HER CALL LIGHT WITHIN REACH. LEFT HAND I.V./S.L. ADDED TAPE TO SECURE IT.
--- NOTE | 2016-10-07 21:30 | NUR ---
PT. IN BED WITH HOB UP FOR COMFORT AND LLE ELEVATED UP ON A FOLDED BLANKET. LEFT HAND PERIPHERAL I.V. SITE INTACT. NO VOICED NEEDS AT THIS TIME SHE IS WATCHING TV AND HAS HER CALL LIGHT WITHIN REACH.
--- NOTE | 2016-10-07 23:30 | NUR ---
PT. IN BED WITH HOB UP FOR COMFORT AND IS STILL WATCHING TV. NO VOICED NEEDS AT THIS TIME AND HER CALL LIGHT IS WITHIN REACH.
--- NOTE | 2016-10-08 01:24 | NUR ---
PT. IN BED WITH HOB UP FOR COMFORT WITH EYES CLOSED AND RESP. EVEN. CALL LIGHT WITHIN REACH.
--- NOTE | 2016-10-08 03:15 | NUR ---
PT. IN BED WITH HOB UP FOR COMFORT AND IS WATCHING TV. NO VOICED NEEDS AND CALL LIGHT WITHIN REACH.
--- NOTE | 2016-10-08 07:30 | NUR ---
RESTING QUIETLY IN BED. EYES CLOSED. NO S/S DISTRESS.
[2016-10-08 08:31] VITALS: BP 120/62
--- NOTE | 2016-10-08 10:53 | NUR ---
Nutrition Follow Up: Spoke with pt and she stated that she did not feel well. She said that her appetite is okay and the meals have been fine. Pt is eating 75% meal avg in a regular diet. She is receiving Ensure TID. Wt stable. +BM 10/07/16. Labs reviewed - Na low. Meds noted including Zofran, Vit D. Rec continue current diet, supplement regimen. RD will continue to monitor pt progress.
--- NOTE | 2016-10-08 12:12 | NUR ---
SITTING UP IN BED EATING LUNCH. HAS PRODUCTIVE COUGH THAT OCCAS GAGS HER AND MAKES HER THROW UP. ABLE TO CLEAR AIRWAY BY SELF. VISITING. CALL LIGHT IN REACH
--- NOTE | 2016-10-08 14:36 | NUR ---
IV ACCESS-22 GAUGE INSERTED IN RIGHT HAND FOR ACCESS. YOSEF HARVEY RN
--- NOTE | 2016-10-08 18:02 | NUR ---
SITTING UP IN BED EATING SUPPER. HAS HAD MEDICATION FOR COUGH AND CONSTIPATION AT HER REQUEST. DSG DRY AND INTACT TO LEFT HIP. ALONSO ARE INTACT AND NO S/S INFECTION. USES W/C FOR MOTION ASST. MIN ASST.
--- NOTE | 2016-10-08 19:20 | NUR ---
PT. HAS JUST TRANSFERED BACK TO BED FROM THE W/C WITH DAY NURSE, SOM RN ASSISTING PT. PT. HAS NO VOICED NEEDS AT THIS TIME. ASSESSMENT COMPLETED. CALL LIGHT WITHIN REACH.
[2016-10-08 21:53] VITALS: BP 120/64
--- NOTE | 2016-10-08 23:10 | NUR ---
PT. IN BED WITH HOB UP FOR COMFORT AND IS WATCHING TV. NO VOICED NEEDS AND SHE HAS HER CALL LIGHT WITHIN REACH.
--- NOTE | 2016-10-09 02:02 | NUR ---
PT. IN BED WITH HOB UP FOR COMFORT WITH EYES CLOSED AND RESP. DEEP AND EVEN. CALL LIGHT WITHIN REACH.
--- NOTE | 2016-10-09 04:05 | NUR ---
PT. IN BED WITH HOB UP FOR COMFORT AND EYES ARE CLOSED AND RESP. EVEN. CALL LIGHT WITHIN REACH.
[2016-10-09 06:46] LABS: BASOPHILS 0.2 % (0.0-2.0); EOSINOPHILS 1.6 % (0-7); HEMATOCRIT 27.9 % (36.0-48.0); IMMATURE GRANULOCYTES 2.3 % (0-5); LYMPHOCYTES 14.9 % (15-50); MCH 25.6 pg (26.0-34.0); MCHC 32.3 g/dL (31.0-37.0); MCV 79.3 fL (80.0-100.0); MONOCYTES 7.5 % (2-11); NEUTROPHILS 73.5 % (40-80); PLATELET COUNT 439 10x3/uL (130-400); RBC 3.52 10x6/uL (4.00-5.40); WBC 12.8 10x3/uL (4.8-10.8)
[2016-10-09 06:57] LABS: CALC OSMOLALITY 276 mosm/kg (275-300); CALCIUM 8.5 mg/dL (8.5-10.1); CARBON DIOXIDE 30.3 mmol/L (21.0-32.0); CHLORIDE - SERUM 102 mmol/L (98-107); CREATININE - SERUM 0.6 mg/dL (0.6-1.3); GLUCOSE 121 mg/dL (74-106); POTASSIUM - SERUM 4.2 mmol/L (3.5-5.1); SODIUM 139 mmol/L (136-145); UREA NITROGEN 6 mg/dL (7-18); eGFR NON AFRICAN AMERICAN > 90 mL/min (90-120)
--- NOTE | 2016-10-09 08:26 | NUR ---
SITTING UP IN BED WATCHING TV. ATE BREAKFAST AND NEEDED MINIMAL ASST TO GO TO BATHROOM VIA WC. DENIES INCREASED PAIN TO LEFT HIP. DSG TO LEFT HIP CLEAN, INTACT.
[2016-10-09 10:15] VITALS: BP 103/55
--- NOTE | 2016-10-09 14:48 | NUR ---
LAYING IN BED WATCHING TV. DENIES NEEDS OR C/O. USES OVER HEAD FRAME TO HELP MOVE IN BED.
--- NOTE | 2016-10-09 19:30 | NUR ---
PT RECEIVED IN BED WITH EYES OPEN VISITING WITH AT BEDSIDE. NO CONCERNS MADE KNOWN AT THIS TIME. CALL LIGHT IN REACH.
[2016-10-09 23:03] VITALS: BP 119/54
--- NOTE | 2016-10-10 01:08 | NUR ---
PT IN BED AT THIS TIME WITH EYES CLOSED AND CHEST RISING. PT REFUSED SHOWER OR BATH BY STAFF AND STATES WILL GIVE BATH IN MORNING. REQUEST PRN PAIN AND TESSALON PEARLS BEFORE GOING TO SLEEP. NO CONCERNS MADE KNOWN AT THIS TIME. CALL LIGHT IN REACH.
--- NOTE | 2016-10-10 05:47 | NUR ---
PT IN BED WITH EYES CLOSED AND CHEST RISING. EASILY AROUSED TO VERBAL STIMULI. RECEIVED AM MEDICATIONS PER MAR WITHOUT DIFFICULTY. NO CONCERNS OR NEEDS MADE KNOWN AT THIS TIME. CALL LIGHT IN REACH.
[2016-10-10 07:00] VITALS: BP 90/44
--- NOTE | 2016-10-10 08:00 | NUR ---
SHIFT ASSMT COMPLETED.CL IN REACH. DRSG TO LEFT HIP INTACT.
--- NOTE | 2016-10-10 12:00 | NUR ---
UP IN BED. AT BEDSIDE.DENIES NEEDS.DRSG TO LEFT HIP CHANGED.CLIPS INTACT.DRY SEROUS DRAINAGE NOTED ON OLD DRSG.
--- NOTE | 2016-10-10 18:00 | NUR ---
DENIES NEEDS.CL IN REACH.
--- NOTE | 2016-10-10 19:49 | NUR ---
PT RECEIVED IN BED WITH EYES OPEN WATCHING TV WITH AT BEDSIDE. COMPLAINS OF PAIN TO LEFT HIP OF 6/10 BUT DOES NOT WANT PRN PAIN MEDICATIONS AT THIS TIME. NO OTHER NEEDS OR CONCERNS MADE KNOWN. CALL LIGHT IN REACH.
--- NOTE | 2016-10-10 22:26 | NUR ---
PT IN BED WITH EYES OPEN WATCHING TV. NO NEEDS MADE KNOWN AT THIS TIME. CALL LIGHT IN REACH. WILL CONTINUE TO OBSERVE.
[2016-10-10 22:46] VITALS: BP 106/49
--- NOTE | 2016-10-11 01:44 | NUR ---
PT IN BED WITH EYES CLOSED AND CHEST RISING. NO SIGN/SYMPTOMS OF DISTRESS NOTED. CALL LIGHT IN REACH. WILL CONTINUE TO OBSERVE.
--- NOTE | 2016-10-11 05:55 | NUR ---
PT IN BED WITH EYES CLOSED AND CHEST RISING. EASILY AROUSED TO VERBAL STIMULI. RECIEVED AM MEDICATION PER MAR WITHOUT DIFFICULTY. NO REQUEST FOR PRN AT THIS TIME. CALL LIGHT IN REACH.
[2016-10-11 07:00] VITALS: BP 118/78
--- NOTE | 2016-10-11 08:00 | NUR ---
SHIFT ASSMT COMPLETED.BREAKFAST GIVEN.CL IN REACH.
--- NOTE | 2016-10-11 12:00 | NUR ---
EATING LUNCH. AT BEDSIDE.
--- NOTE | 2016-10-11 16:00 | NUR ---
AT BEDSIDE.CL IN REACH.DENIES NEEDS.
--- NOTE | 2016-10-11 20:13 | NUR ---
PT IN BED WITH EYES OPEN WATCHING TV. NO CONCERNS MADE KNOWN. CALL LIGHT IN REACH. WILL CONTINUE TO OBSERVE.
[2016-10-11 23:53] VITALS: BP 110/69
--- NOTE | 2016-10-12 01:18 | NUR ---
PT IN BED WITH EYES OPEN WATCHING TV. COMPLAINS OF PAIN 7/10 TO LEFT HIP. PRN MEDICATION GIVEN PER MAR WITHOUT DIFFICULTY. NO OTHER NEEDS OR CONCERNS MADE KNOWN AT THIS TIME. CALL LIGHT IN REACH. WILL CONTINUE TO OBSERVE.
--- NOTE | 2016-10-12 04:58 | NUR ---
PT IN BED WITH EYES CLOSED AND CHEST RISING. NO CONCERNS MADE KNOWN AT THIS TIME. CALL LIGHT IN REACH.
[2016-10-12 07:15] LABS: BASOPHILS 0.3 % (0-2); EOSINOPHILS 2.6 % (0-7); HEMATOCRIT 31.9 % (36.0-48.0); HEMOGLOBIN 9.9 g/dL (12-16); IMMATURE GRANULOCYTES 1.8 % (0-5); LYMPHOCYTES 18.4 % (15-50); MCH 25.1 pg (26.0-34.0); MCV 80.8 fL (80.0-100.0); MEAN PLATELET VOLUME 8.8 fL (7.4-10.4); MONOCYTES 5.6 % (2-11); NEUTROPHILS 71.3 % (40-80); RBC 3.95 10x6/uL (4.00-5.40); RDW 19.5 % (11.5-14.5); WBC 12.6 10x3/uL (4.8-10.8)
[2016-10-12 07:18] LABS: PLATELET COUNT 528 10x3/uL (130-400)
[2016-10-12 07:23] LABS: CALC OSMOLALITY 268 mosm/kg (275-300); CALCIUM 9.1 mg/dL (8.5-10.1); CARBON DIOXIDE 27.1 mmol/L (21.0-32.0); CHLORIDE - SERUM 100 mmol/L (98-107); CREATININE - SERUM 0.7 mg/dL (0.6-1.3); GLUCOSE 125 mg/dL (74-106); POTASSIUM - SERUM 3.9 mmol/L (3.5-5.1); SODIUM 135 mmol/L (136-145); UREA NITROGEN 8 mg/dL (7-18); eGFR NON AFRICAN AMERICAN 85 mL/min (90-120)
[2016-10-12 08:12] VITALS: BP 130/60
--- NOTE | 2016-10-12 09:35 | NUR ---
RESTING IN BED. PAIN MEDS GIVEN FOR LEFT HIP PAIN. DSG TO LEFT HIP DRY AND INTACT. USES W/C. MIN ASST WITH TRANSFERS.
--- NOTE | 2016-10-12 10:39 | NUR ---
SITTING UP IN W/C IN ROOM EATING BREAKFAST. DTR IN ROOM WITH PT.
--- NOTE | 2016-10-12 17:30 | NUR ---
SITTING UP IN BED EATING SUPPER. IN ROOM WIHT PT. SHE DENIES NEEDS OR C/O INCREASED PAIN
[2016-10-12 20:18] VITALS: BP 126/64
--- NOTE | 2016-10-12 21:04 | NUR ---
PT RECEIVED IN BED WITH EYES OPEN WATCHING TV. PT STATES PAIN LEVEL 5/10 AND REQUEST PRN PAIN MEDICATION WHEN SCHEDULED MEDICATIONS ARE GIVEN. NO OTHER NEEDS MADE KNOWN. CALL LIGHT IN REACH. WILL CONTINUE TO OBSERVE.
--- NOTE | 2016-10-12 23:16 | NUR ---
PT IN BED WITH EYES CLOSED AND CHEST RISING. NO SIGN/SYMPTOMS OF DISTRESS NOTED. CALL LIGHT IN REACH. WILL CONTINUE TO OBSERVE.
--- NOTE | 2016-10-13 01:13 | NUR ---
PT IN BED WITH EYES CLOSED AND CHEST RISING. NO SIGN/SYMPTOMS OF PAIN OR DISTRESS NOTED. CALL LIGHT IN REACH. WILL CONTINUE TO OBSERVE.
--- NOTE | 2016-10-13 06:18 | NUR ---
PT IN BED WITH EYES OPEN. COMPLAINED OF PAIN 7/10 WITH PRN PAIN MEDICATION GIVEN WITH SCHEDULED AM MEDICATIONS PER MAR WITHOUT DIFFICULTY. NO CONCERNS MADE KNOWN. CALL LIGHT IN REACH.
--- NOTE | 2016-10-13 07:30 | NUR ---
RESTING QUIETLY IN BED WATCHING TV THIS MORNING. USES OVERHEAD FRAME AND TRAPIEZE TO MOVE AROUND IN BED. DSG REMOVED FROM LEFT HIP. ALONSO INTACT. NO S/S INFECTION. USES WALKER FOR AMBULATION ASST.
[2016-10-13 08:19] VITALS: BP 114/55
--- NOTE | 2016-10-13 11:21 | NUR ---
PATIENT DISCHARGING HOME ON 10/14/16 WITH FAMILY. [facility] WILL FOLLOW PATIENT AT HOME FOR THERAPY. PATIENT HAS WALKER AND CANE. DR. ORTIZ 10/27/16 @ 2:15, DR. MACIAS 10/16/16 @9:40. PATIENT CHOICE FORM FOR HOME HEALTH AND IM FORMS SIGNED, EXPLAINED AND FILED IN CHART. PATIENT EDUCATED ON SIGNS AND SYMPTOMS OF INFECTION TO SURGICAL SITE. PATIENT HAS VOICED UNDERSTANDING. WILL CONTINUE TO FOLLOW WITH PATIENT UNTIL DISCHARGED
--- NOTE | 2016-10-13 12:14 | NUR ---
EATING LUNCH IN BED. HAS LLE ELEVATED IN BED. PAIN MEDS GIVEN ORDERED AND REQUESTED.
--- NOTE | 2016-10-13 13:30 | NUR ---
Nutrition Follow Up: Chart reviewed. Pt is eating 67% meal avg on a regular diet. She is receiving Ensure TID. +BM 10/13/16. No new wt to assess. Meds and labs reviewed. Rec continue current diet. Will continue to send Ensure TID. RD following.
--- NOTE | 2016-10-13 18:11 | NUR ---
SITTING UP IN BED EATING SUPPER. DENIES NEEDS
[2016-10-13 19:16] VITALS: BP 120/55
--- NOTE | 2016-10-13 19:20 | NUR ---
PT SITTING UP IN BED VISITING WITH FAMILY. PT DENIES NEEDS. BED LOW. CL IN REACH.
--- NOTE | 2016-10-13 20:06 | NUR ---
PT REQ AND REC'D PRN PAIN MEDICATION FOR LEFT HIP PAIN WITH HS MEDS. PT FAMILY AT BEDSIDE. WCTM. BED LOW. CL IN REACH.
--- NOTE | 2016-10-13 22:00 | NUR ---
PT SITTING UP IN BED WATCHING TV, DENIES NEEDS. WCTM. BED LOW. CL IN REACH.
--- NOTE | 2016-10-14 01:40 | NUR ---
PT REQ AND REC'D PRN PAIN MEDICATION AND TESSALON PERLE. BED LOW. CL IN REACH.
--- NOTE | 2016-10-14 04:47 | NUR ---
PT RESTING, EYES CLOSED. RR EVEN AND UNLABORED. BED LOW. CL IN REACH.
--- NOTE | 2016-10-14 06:07 | NUR ---
PT AM MEDS ADMINISTERED. PT DENIES NEEDS. BED LOW. CLI N REACH.
[2016-10-14 06:13] LABS: BASOPHILS 0.4 % (0-2); EOSINOPHILS 3.6 % (0-7); HEMOGLOBIN 9.8 g/dL (12-16); LYMPHOCYTES 25.5 % (15-50); MCH 24.4 pg (26.0-34.0); MCHC 30.6 g/dL (31.0-37.0); MCV 79.6 fL (80.0-100.0); MEAN PLATELET VOLUME 8.9 fL (7.4-10.4); MONOCYTES 7.2 % (2-11); NEUTROPHILS 62.3 % (40-80); PLATELET COUNT 549 10x3/uL (130-400); RBC 4.02 10x6/uL (4.00-5.40); RDW 19.1 % (11.5-14.5)
[2016-10-14 06:25] LABS: WBC 8.1 10x3/uL (4.8-10.8)
[2016-10-14 06:33] LABS: CALC OSMOLALITY 274 mosm/kg (275-300); CALCIUM 8.8 mg/dL (8.5-10.1); CARBON DIOXIDE 27.1 mmol/L (21.0-32.0); CHLORIDE - SERUM 103 mmol/L (98-107); CREATININE - SERUM 0.7 mg/dL (0.6-1.3); GLUCOSE 113 mg/dL (74-106); POTASSIUM - SERUM 3.9 mmol/L (3.5-5.1); SODIUM 138 mmol/L (136-145); UREA NITROGEN 8 mg/dL (7-18); eGFR NON AFRICAN AMERICAN 85 mL/min (90-120)
[2016-10-14 07:51] VITALS: BP 112/56
--- NOTE | 2016-10-14 08:00 | NUR ---
SHIFT ASSMT COMPLETED.PLAN TO DISCHARGE HOME TODAY.DENIES NEEDS.CL IN REACH.
[2016-10-14] MEDS ORDERED: OXYCODONE HCL5 MG PO (08:22)
--- NOTE | 2016-10-14 10:36 | NUR ---
REVIEWED MEDS WITH PATIENT.COUPON GIVEN FOR ELIQUIS.MEDS CALLED INTO PTS PHARMACY.APPTS FOR F/U GIVEN.STATES UNDERSTANDING.
--- NOTE | 2016-10-14 10:59 | NUR ---
DC'D TO HOME IN STABLE CONDITION.
== END 2016-10-14 11:00 | disposition home health service (06) | DRG 560 ==
LOC: D.REHAB 12:15
PROVIDERS: ADMIT Emergency Medicine
DX: S72.002D Fracture of unspecified part of neck of left femur, subsequent encounter for closed fracture with routine healing (principal); T84.84XA Pain due to internal orthopedic prosthetic devices, implants and grafts, initial encounter; D62 Acute posthemorrhagic anemia; I95.9 Hypotension, unspecified; G47.00 Insomnia, unspecified; K21.9 Gastro-esophageal reflux disease without esophagitis; K59.00 Constipation, unspecified; M16.12 Unilateral primary osteoarthritis, left hip

== ENCOUNTER → 2016-11-19 16:32 | Outpatient (CLI) | payer MEDICARE, OTHER ==
[2016-10-06 14:21] VITALS: BMI 27.4
== END | disposition home or self-care (01) ==
LOC: D.MAMMO 11-18 09:00
DX: Z12.31 Encounter for screening mammogram for malignant neoplasm of breast (principal)

== ENCOUNTER → 2017-08-17 08:50 | Outpatient (CLI) | payer MEDICARE, OTHER ==
[2016-10-06 14:21] VITALS: BMI 27.4
[~2017-08-17 08:50] MED LIST changes: +BENADRYL25 MG PO; +COLACE100 MG PO; +DILAUDID4 MG PO; +DURAGESIC1 PATCH .4 TRANSDERM; +MIRALAX17 GM PO; +NALOXONE HC0.4 MG/M2 IV; +PERCOCET 5-3251 TAB PO; +ROBAXIN-750750 MG PO; +SENOKOT-S TABLE1 TAB PO; +ULTRAM50 MG PO; +ZOFRAN4 MG PO
[2017-08-17 11:33] LABS: ERYTHROCYTE SEDIMENTATION RATE 1 mm/hr (0-30)
== END | disposition home or self-care (01) ==
LOC: D.NM 08:50
PROVIDERS: Orthopaedic Surgery
DX: T85.848A Pain due to other internal prosthetic devices, implants and grafts, initial encounter (principal)

== ENCOUNTER → 2017-08-25 18:40 | Outpatient (CLI) | payer MEDICARE, OTHER ==
[2016-10-06 14:21] VITALS: BMI 27.4
== END | disposition home or self-care (01) ==
LOC: D.LABREF 18:40
DX: M25.552 Pain in left hip (principal); Z11.8 Encounter for screening for other infectious and parasitic diseases

== ENCOUNTER 2017-09-06 07:30 | Inpatient (IN) | payer MEDICARE, OTHER ==
[2017-09-02 09:21] LABS: BASOPHILS 0.4 % (0-2); EOSINOPHILS 2.2 % (0-7); HEMATOCRIT 39.9 % (36.0-48.0); HEMOGLOBIN 12.8 g/dL (12-16); IMMATURE GRANULOCYTES 0.2 % (0-5); LYMPHOCYTES 31.8 % (15-50); MCH 23.8 pg (26.0-34.0); MCHC 32.1 g/dL (31.0-37.0); MCV 74.3 fL (80.0-100.0); MEAN PLATELET VOLUME 9.7 fL (7.4-10.4); MONOCYTES 5.4 % (2-11); RBC 5.37 10x6/uL (4.00-5.40); RDW 15.3 % (11.5-14.5); WBC 8.2 10x3/uL (4.8-10.8)
[2017-09-02 09:27] LABS: ANION GAP 12.3 mmol/L (8-16); CALCIUM 9.1 mg/dL (8.5-10.1); CARBON DIOXIDE 28.4 mmol/L (21.0-32.0); CREATININE - SERUM 0.8 mg/dL (0.6-1.3); POTASSIUM - SERUM 3.7 mmol/L (3.5-5.1)
[2017-09-02 09:29] LABS: APPEARANCE CLEAR (CLEAR); BILIRUBIN NEGATIVE (NEGATIVE); COLOR YELLOW (YELLOW); GLUCOSE NEGATIVE (NEGATIVE); KETONE NEGATIVE (NEGATIVE); NITRITE NEGATIVE (NEGATIVE); PLATELET COUNT 265 10x3/uL (130-400); PROTEIN NEGATIVE (NEGATIVE); SPECIFIC GRAVITY 1.015 (1.005-1.020); UROBILINOGEN NORMAL (NORMAL)
[2017-09-02 10:05] LABS: APTT 26.3 SECONDS (22.8-39.4); INR 0.97 (0.85-1.17); PROTIME 12.5 SECONDS (11.6-15.0)
[~2017-09-06] VITALS: Ht 157.5 cm; Wt 71.7 kg
--- NOTE | ~2017-09-06 | CN ---
PATIENT NAME:SKYE CHAPIN MEDICAL RECORD: [id number] : 39 LOCATION:[id number] ADMIT DATE: 09/06/17 ACCOUNT: [id number] CONSULTING PHYSICIAN: ELLY ORTIZ MD REFERRING PHYSICIAN: ELLY FREDERICK MD DATE OF CONSULTATION: 09/08/2017 DATE OF ADMISSION: 09/06/2017 REASON FOR CONSULTATION: Medical management. HISTORY OF PRESENT ILLNESS: This is an 82-year-old -[place] female who had been admitted by Dr. Frederick for left hip revision. She was admitted on the and did undergo revision. He has asked me to consult on the . PAST MEDICAL HISTORY: Skye's past history is significant that she has had left hip replaced in September 2016. She had an appendectomy, carpal tunnel syndrome, hysterectomy. Had a history of gastroesophageal reflux, rheumatoid arthritis, peptic ulcer disease, Achilles tendinitis bilaterally, hyperlipidemia, Dupuytren contracture with release, carpal tunnel syndrome, pneumonia. She has had a closed fracture of lateral malleolus, osteoarthritis of the knees, osteoporosis, anxiety, history of anemia, vitamin D deficiency. MEDICATIONS: Include atorvastatin 20 mg once a day, Carafate 1 g q.a.c and q.h.s. ALLERGIES: ACTONEL WELL IODINE. FAMILY HISTORY: Mother at 93 years of age, of old age. Sister had lung cancer, at 84. Brother of COPD. SOCIAL HISTORY: The patient born and raised in [place], [place]. She lives in [place]. She is . She is educated through the 12th grade. Currently, works at [employer]. HABITS: She denies any ethanol, tobacco use or abuse. REVIEW OF SYSTEMS: CONSTITUTIONAL: She denies any change in visual or auditory acuity. PULMONARY: She denies any shortness of breath, cough, congestion, history of TB, asthma, or bronchitis. CARDIOVASCULAR: She denies any chest pain, palpitations, PND or orthopnea. GASTROINTESTINAL: No chronic nausea, vomiting, melena or hematochezia. GENITOURINARY: No urgency, frequency, or dysuria. PHYSICAL EXAMINATION: VITAL SIGNS: On the , her temperature is 99.1, pulse was 114, respirations 14, blood pressure was 120/60, and her pulse ox was 98. HEENT: Head is normocephalic. No lesions. Ears: TMs clear. Eyes: Pupils are equal, round and reactive to light. Her extraocular movements are intact. Her nasal cavity, oral cavity, and oropharynx are clear. NECK: Supple. There is no adenopathy. HEART: Slightly tachycardic. LUNGS: Clear. ABDOMEN: Soft, bowel sounds are positive. CONSULT REPORT [id number] [facility] DATA: On the , she had a white count of 12, hemoglobin is 8.1, hematocrit 24.1, and her platelets are 106. She had a chemistry done on September 02; sodium 138, potassium 3.7, chloride 101, BUN is 10, creatinine 0.8, blood sugar is 98. Her urine was unremarkable. ASSESSMENT: 1. Status post left total hip revision. 2. History of anemia secondary to acute blood loss. 3. History of anxiety. 4. Recent tachycardia. 5. History of gastroesophageal reflux. 6. Osteoporosis. PLAN: We will recheck an H&H at the present time. She has had 2 units of packed red blood cells ordered earlier today. We will also recheck CBC as well as BMP in a.m. Continue to follow with you. Also, the patient was advised to take Valium 5 mg every 4 hours p.r.n. anxiety. Thanks for the consultation. TRANSINT:[id number] Voice Confirmation ID: [id number] DOCUMENT ID: [id number] ELLY ORTIZ MD at 0623 CC: [id number] DICTATION DATE: 09/08/171836 SUPERVISOR INVENTORY MERCHANDISING: 09/08/171954 [facility] [place] [id number] [place] [address]
--- NOTE | ~2017-09-06 | OP ---
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 PROCEDURE: Revision total hip arthroplasty. SURGEON: Elly Frederick MD ANESTHESIA: General. INTRAOPERATIVE COMPLICATIONS: None. SUMMARY OF PATHOLOGIC FINDINGS: Essentially none. INDICATIONS: Ms. Chapin had had a total hip put in place that had have been very painful for a long time. At the time of surgery, there was no evidence of infection. OPERATIVE SUMMARY IN DETAIL: After obtaining the appropriate preoperative orthopedic surgery consent as well as anesthetic consultation, evaluation and clearance, the patient was brought to the operating room and placed on the operating table in supine position. After general laryngeal mask airway was administered, the patient was placed in a right lateral decubitus position, all pressure points were well padded. She was held firmly to the operating table using a vacuum pack suction system. The previously utilized incision was taken out over the IT band and was split in line with fibers of the IT band to reveal the gluteus medius and minimus that had been previously detached and reattached. These were taken down again. The hip capsule was cut revealing the prosthesis. At no point did any purulence or any evidence of infection was seen. At this point, the hip was dislocated. The previously placed femoral head was tamped off the Lee taper. Serial and sequential removal of the previously placed hip was done using the schmitt revision system with the small flexible osteotomes. Small medial calcar fracture was sustained. Attention was then turned to removal of the cup. Polyethylene was removed and then again the curvilinear osteotomes along with the schmitt revision set was utilized to extract the acetabular component. Substantial amount of posterior wall loss was noted. The patient had been reamed previously very deep into the iliacus. At this point, cultures were taken. The wound was copiously irrigated. Reaming was then reestablished in the acetabulum with substantial amount of posterior bone loss as well as medial bone loss. The multi-holed Tritanium cup from [employer] was utilized with screws, both up the column as well as inferiorly into the rami. It was felt that good stable fixation of the cup had been achieved. Polyethylene was then put into place. Attention was then turned to the proximal femur. Serial and sequential reaming and broaching were done for the long stem hinduism modular hip system. The final stem was seated and the trials were undertaken with the proximal body of the rest mod system until the size 23 was the size that was most appropriate. A 23+[address] and then trials were undertaken with the femoral head and neck. Femoral head was then tamped on OPERATIVE REPORT [id number] TYSON CHAPIN the Lee taper. The hip was reduced, taken through range of motion and found to be stable in all planes. At this point, the wound was copiously irrigated. The hip capsule was reapproximated with #2 Ethibond and the gluteus medius and minimus were reapproximated to the greater trochanter in a transosseous fashion with #5 Ethibond. The IT band was closed with #2 Ethibond followed by #1 Vicryl, 2-0 Vicryl, and skin prasanna. Sterile dressings were applied. The patient was awakened, taken to recovery room in stable condition. All final needle and sponge counts were correct. TRANSINT:[id number] Voice Confirmation ID: [id number] DOCUMENT ID: [id number] ELLY FREDERICK MD at 1518 CC: [id number] DICTATION DATE: 10/28/17818 CLINICAL NEUROPSYCHOLOGIST: 10/28/17 1350 DIS IN 09/12/17 [facility] [address] [place] [id number]
[~2017-09-06 07:30] MED LIST changes: -BENADRYL25 MG PO; -COLACE100 MG PO; -DILAUDID4 MG PO; -DURAGESIC1 PATCH .4 TRANSDERM; -MIRALAX17 GM PO; -NALOXONE HC0.4 MG/M2 IV; -PERCOCET 5-3251 TAB PO; -ROBAXIN-750750 MG PO; -SENOKOT-S TABLE1 TAB PO; -ULTRAM50 MG PO; -ZOFRAN4 MG PO
[2017-09-06 07:58] VITALS: BP 124/71; BMI 29.1
[2017-09-06 14:54] LABS: HEMATOCRIT 30.6 % (36.0-48.0); HEMOGLOBIN 9.9 g/dL (12-16)
[2017-09-06 15:59] VITALS: BP 95/78
[2017-09-06 17:44] VITALS: BP 95/78; BMI 28.9
[2017-09-06 20:00] VITALS: BP 103/59
[2017-09-06 20:19] LABS: HEMATOCRIT 26.5 % (36.0-48.0); HEMOGLOBIN 8.8 g/dL (12-16)
[2017-09-07] VITALS (11 sets, daily range): BP systolic 82–123; BP diastolic 42–89; Ht 157.5 cm; Wt 71.7 kg
[2017-09-07 04:15] LABS: HEMATOCRIT 24.6 % (36.0-48.0); HEMOGLOBIN 8.1 g/dL (12-16); MCH 25.6 pg (26.0-34.0); MCHC 32.9 g/dL (31.0-37.0); MCV 77.6 fL (80.0-100.0); MEAN PLATELET VOLUME 10.8 fL (7.4-10.4); RBC 3.17 10x6/uL (4.00-5.40); RDW 16.3 % (11.5-14.5); WBC 13.6 10x3/uL (4.8-10.8)
[2017-09-08] VITALS: BP 92/49
[2017-09-08 04:00] VITALS: BP 84/41
[2017-09-08 06:20] LABS: HEMATOCRIT 24.1 % (36.0-48.0); HEMOGLOBIN 8.1 g/dL (12-16); MCH 26.2 pg (26.0-34.0); MCHC 33.6 g/dL (31.0-37.0); MEAN PLATELET VOLUME 10.8 fL (7.4-10.4); RBC 3.09 10x6/uL (4.00-5.40); RDW 16.3 % (11.5-14.5)
[2017-09-08 08:49] VITALS: BP 113/57
[2017-09-08 12:56] VITALS: BP 120/60
[2017-09-08 18:59] LABS: HEMATOCRIT 29.1 % (36.0-48.0); HEMOGLOBIN 9.7 g/dL (12-16)
[2017-09-08 20:00] VITALS: BP 91/42
[2017-09-09] VITALS (15 sets, daily range): BP systolic 75–133; BP diastolic 36–71
[2017-09-09 07:41] LABS: BASOPHILS 0.2 % (0-2); EOSINOPHILS 1.7 % (0-7); HEMATOCRIT 32.1 % (36.0-48.0); HEMOGLOBIN 10.5 g/dL (12-16); IMMATURE GRANULOCYTES 0.7 % (0-5); LYMPHOCYTES 11.6 % (15-50); MCHC 32.7 g/dL (31.0-37.0); MEAN PLATELET VOLUME 10.5 fL (7.4-10.4); MONOCYTES 7.6 % (2-11); NEUTROPHILS 78.2 % (40-80); PLATELET COUNT 102 10x3/uL (130-400); RDW 16.6 % (11.5-14.5); WBC 12.1 10x3/uL (4.8-10.8)
[2017-09-09 07:50] LABS: CALC OSMOLALITY 270 mosm/kg (275-300); CALCIUM 7.9 mg/dL (8.5-10.1); CARBON DIOXIDE 27.2 mmol/L (21.0-32.0); CHLORIDE - SERUM 102 mmol/L (98-107); CREATININE - SERUM 0.7 mg/dL (0.6-1.3); GLUCOSE 112 mg/dL (74-106); SODIUM 136 mmol/L (136-145); UREA NITROGEN 6 mg/dL (7-18); eGFR NON AFRICAN AMERICAN 85 mL/min (90-120)
[2017-09-09 07:50] LABS: MCV 82.5 fL (80.0-100.0); RBC 3.89 10x6/uL (4.00-5.40)
[2017-09-10 04:00] VITALS: BP 105/40
[2017-09-10 05:08] LABS: BASOPHILS 0.1 % (0-2); EOSINOPHILS 1.8 % (0-7); HEMOGLOBIN 9.7 g/dL (12-16); IMMATURE GRANULOCYTES 0.8 % (0-5); LYMPHOCYTES 13.1 % (15-50); MCH 26.9 pg (26.0-34.0); MCHC 32.3 g/dL (31.0-37.0); MCV 83.1 fL (80.0-100.0); MEAN PLATELET VOLUME 11.3 fL (7.4-10.4); MONOCYTES 8.7 % (2-11); NEUTROPHILS 75.5 % (40-80); RBC 3.61 10x6/uL (4.00-5.40); RDW 17.1 % (11.5-14.5); WBC 9.6 10x3/uL (4.8-10.8)
[2017-09-10 05:10] LABS: PLATELET COUNT 130 10x3/uL (130-400)
[2017-09-10 05:15] LABS: CALC OSMOLALITY 267 mosm/kg (275-300); CALCIUM 7.8 mg/dL (8.5-10.1); CARBON DIOXIDE 28.5 mmol/L (21.0-32.0); CHLORIDE - SERUM 102 mmol/L (98-107); CREATININE - SERUM 0.7 mg/dL (0.6-1.3); GLUCOSE 120 mg/dL (74-106); POTASSIUM - SERUM 3.7 mmol/L (3.5-5.1); SODIUM 135 mmol/L (136-145); UREA NITROGEN 5 mg/dL (7-18); eGFR NON AFRICAN AMERICAN 85 mL/min (90-120)
[2017-09-10 09:07] VITALS: BP 121/56
[2017-09-10 12:36] VITALS: BP 101/41
[2017-09-10 16:27] VITALS: BP 97/49
[2017-09-10 21:47] VITALS: BP 139/61
[2017-09-11 02:19] VITALS: BP 103/47
[2017-09-11 04:53] LABS: BASOPHILS 0.1 % (0-2); EOSINOPHILS 2.2 % (0-7); HEMATOCRIT 30.7 % (36.0-48.0); HEMOGLOBIN 9.7 g/dL (12-16); LYMPHOCYTES 18.6 % (15-50); MCH 26.4 pg (26.0-34.0); MCHC 31.6 g/dL (31.0-37.0); MCV 83.4 fL (80.0-100.0); MEAN PLATELET VOLUME 9.9 fL (7.4-10.4); MONOCYTES 10.5 % (2-11); NEUTROPHILS 67.6 % (40-80); RBC 3.68 10x6/uL (4.00-5.40); RDW 17.2 % (11.5-14.5); WBC 8.4 10x3/uL (4.8-10.8)
[2017-09-11 05:01] LABS: PLATELET COUNT 174 10x3/uL (130-400)
[2017-09-11 05:18] LABS: ALBUMIN 2.4 g/dL (3.4-5.0); ALKALINE PHOSPHATASE 72 U/L (46-116); ALT (SGPT) 30 U/L (10-68); BILIRUBIN - TOTAL 1.02 mg/dL (0.2-1.3); CALC OSMOLALITY 269 mosm/kg (275-300); CALCIUM 8.2 mg/dL (8.5-10.1); CARBON DIOXIDE 28.6 mmol/L (21.0-32.0); CHLORIDE - SERUM 101 mmol/L (98-107); CREATININE - SERUM 0.6 mg/dL (0.6-1.3); GLUCOSE 113 mg/dL (74-106); POTASSIUM - SERUM 3.6 mmol/L (3.5-5.1); SODIUM 136 mmol/L (136-145); UREA NITROGEN 5 mg/dL (7-18); eGFR NON AFRICAN AMERICAN > 90 mL/min (90-120)
[2017-09-11 07:05] VITALS: BP 103/47
[2017-09-11 11:02] VITALS: BP 109/52
[2017-09-11 15:00] VITALS: BP 97/47
[2017-09-11 20:00] VITALS: BP 114/48
[2017-09-12 00:46] VITALS: BP 100/58
[2017-09-12 05:16] LABS: BASOPHILS 0.2 % (0-2); HEMATOCRIT 30.6 % (36.0-48.0); HEMOGLOBIN 9.7 g/dL (12-16); IMMATURE GRANULOCYTES 1.8 % (0-5); LYMPHOCYTES 16.5 % (15-50); MCH 26.7 pg (26.0-34.0); MCHC 31.7 g/dL (31.0-37.0); MCV 84.3 fL (80.0-100.0); MEAN PLATELET VOLUME 10.2 fL (7.4-10.4); MONOCYTES 11.1 % (2-11); NEUTROPHILS 68.4 % (40-80); RBC 3.63 10x6/uL (4.00-5.40); RDW 17.3 % (11.5-14.5); WBC 9.9 10x3/uL (4.8-10.8)
[2017-09-12 05:19] VITALS: BP 94/42
[2017-09-12 05:20] LABS: PLATELET COUNT 233 10x3/uL (130-400)
[2017-09-12 05:34] LABS: ALBUMIN 2.4 g/dL (3.4-5.0); ALKALINE PHOSPHATASE 72 U/L (46-116); ALT (SGPT) 34 U/L (10-68); CALC OSMOLALITY 273 mosm/kg (275-300); CALCIUM 8.2 mg/dL (8.5-10.1); CARBON DIOXIDE 27.1 mmol/L (21.0-32.0); CHLORIDE - SERUM 101 mmol/L (98-107); CREATININE - SERUM 0.6 mg/dL (0.6-1.3); GLUCOSE 117 mg/dL (74-106); POTASSIUM - SERUM 3.8 mmol/L (3.5-5.1); SODIUM 138 mmol/L (136-145); UREA NITROGEN 5 mg/dL (7-18); eGFR NON AFRICAN AMERICAN > 90 mL/min (90-120)
[2017-09-12 08:07] VITALS: BP 113/45
[2017-09-12 09:53] LABS: APPEARANCE CLEAR (CLEAR); BILIRUBIN NEGATIVE (NEGATIVE); COLOR YELLOW (YELLOW); GLUCOSE NEGATIVE (NEGATIVE); KETONE NEGATIVE (NEGATIVE); NITRITE NEGATIVE (NEGATIVE); PROTEIN NEGATIVE (NEGATIVE); SPECIFIC GRAVITY 1.005 (1.005-1.020); UROBILINOGEN NORMAL (NORMAL)
[2017-09-12 09:55] LABS: WHITE CELLS - URINE 0-5 /hpf (0-5)
[2017-09-12 09:56] LABS: BACTERIA FEW /hpf (NONE SEEN)
[2017-09-12 11:57] VITALS: BP 104/43
[2017-09-12 15:29] VITALS: BP 116/88
[2017-09-12] MEDS ORDERED: PERCOCET 5-3251 TAB PO (18:14)
[2017-09-12] MEDS ORDERED: ELIQUIS2.5 MG PO (19:42)
[2017-09-12] MEDS ORDERED: ROBAXIN-750750 MG PO (19:43)
[2017-09-12] MEDS ORDERED: SENOKOT-S TABLE1 TAB PO (19:44)
[2017-09-12] MEDS ORDERED: DILAUDID4 MG PO (19:45)
[2017-09-12] MEDS ORDERED: BENADRYL25 MG PO (19:45)
[2017-09-12] MEDS ORDERED: NALOXONE HC0.4 MG/M2 IV (19:47)
[2017-09-12] MEDS ORDERED: ZOFRAN4 MG PO (19:47)
[2017-09-12] MEDS ORDERED: ULTRAM50 MG PO (19:48)
[2017-09-12] MEDS ORDERED: COLACE100 MG PO (19:53)
[2017-09-12] MEDS ORDERED: MIRALAX17 GM PO (19:53)
== END 2017-09-12 18:58 | DRG 467 ==
LOC: D.MS 07:30 → D.SDCHOLD 07:30 → D.MS 15:10
PROVIDERS: Family Medicine; Orthopaedic Surgery
PROC: 0SRB0JZ Replacement of Left Hip Joint with Synthetic Substitute, Open Approach (ICD-10-PCS; principal; 2017-09-06 09:30)
PROC: 0SPB0JZ Removal of Synthetic Substitute from Left Hip Joint, Open Approach (ICD-10-PCS; 2017-09-06 09:30)
PROC: 05HC33Z Insertion of Infusion Device into Left Basilic Vein, Percutaneous Approach (ICD-10-PCS; 2017-09-07)
PROC: B54NZZA Ultrasonography of Left Upper Extremity Veins, Guidance (ICD-10-PCS; 2017-09-07)
DX: T84.091A Other mechanical complication of internal left hip prosthesis, initial encounter (principal); D62 Acute posthemorrhagic anemia; J98.11 Atelectasis; K21.9 Gastro-esophageal reflux disease without esophagitis; M06.9 Rheumatoid arthritis, unspecified; M16.12 Unilateral primary osteoarthritis, left hip

== ENCOUNTER 2017-09-12 15:05 | Inpatient (IN) | payer MEDICARE, OTHER ==
[~2017-09-12] VITALS: Ht 157.5 cm; Wt 76.7 kg
--- NOTE | ~2017-09-12 | RHP ---
PATIENT: TYSON CHAPIN MEDICAL RECORD: [id number] ACCOUNT: [id number] LOCATION:[facility]1118 : 37 ADMISSION DATE: 09/12/17 REHABILITATION HISTORY AND PHYSICAL EXAMINATION POST ADMISSION PHYSICIAN EXAMINATION DATE OF ADMISSION: 09/12/2017 ADMITTING DIAGNOSES: Proximal left femur fracture with internal complications of left total hip arthroplasty. HISTORY OF PRESENT ILLNESS: The patient is an 82-year-old female patient admitted to inpatient rehab for left proximal femur fracture and internal complications. She is status post revision of left total hip done on 09/06/17. She originally had a left total hip in September 2016. For the past month, she has had constant dull aching pain in the left hip, is aggravated by standing and walking. On 09/06/17, she went to the OR for revision of left total hip. Postop showed a left hip arthroplasty revision, components demonstrated good alignment. There is a stable appearing fracture of the left proximal femur medially. There is also swollen and expected postoperative changes noted in the soft tissues of left hip. Postop, she has had complication of blood loss anemia, received a total of 6 units of packed red blood cells, hypotension with systolic blood pressure in the 70s, tachycardia with heart rate greater than 135, thrombocytopenia with a platelet count of 102 and a fever with a T-max of 100.8. She has also had intractable pain. Due to multiple transfusions and blood, she has been unable to participate in therapy. She has had to have adjustments in her pain meds. She is max assist for bed mobility, sit to stand. She has also had generalized weakness and fatigue in the right lower extremity and left lower extremity. She wants to regain her function and be able to return home with her after rehabilitation. COMORBIDITIES: Include status post total hip revision, intractable pain, hypotension, postop fever, sinus tachycardia, thrombocytopenia, osteoarthritis, peptic ulcer disease, hyperlipidemia, anemia, vitamin D deficiency, anxiety, gastroesophageal reflux disease, and cataracts. PAST MEDICAL HISTORY: Significant for gastroesophageal reflux disease, rheumatoid arthritis, peptic ulcer disease, hyperlipidemia, Dupuytren contracture and surgery for this, pneumonia, osteoarthritis, anxiety, anemia, and vitamin D deficiency. PAST SURGICAL HISTORY: Includes carpal tunnel release surgery. ALLERGIES: No known drug allergies. CURRENT MEDICATIONS: Include tramadol 50 mg q.4 hours as needed, Senokot 1 tab b.i.d., Zofran 4 mg q.4 hours p.r.n., naloxone as needed. She is on Robaxin 750 mg t.i.d., Colace 100 mg b.i.d., Benadryl 25 mg q.6 hours p.r.n. itching, MiraLax 17 grams times 4 daily, vitamin D 1000 units daily, Eliquis 2.5 mg b.i.d., Carafate 1 gram daily and Percocet 5/325 as needed for severe pain. HABITS: No alcohol or tobacco use. FAMILY HISTORY: Noncontributory. HISTORY AND PHYSICAL [id number] TYSON CHAPIN SOCIAL HISTORY: The patient hopes to return back home with her and get back to her prior level of functioning. REVIEW OF SYSTEMS: GENERAL: Does complain of weakness. HEENT: Denies cold, cough, or congestion. CARDIOVASCULAR: Denies chest pain. PHYSICAL EXAMINATION: VITAL SIGNS: Stable, afebrile. GENERAL: An elderly female in no acute distress, alert upon exam. HEENT: Normocephalic and atraumatic. Mucosa moist. NECK: Supple. No lymphadenopathy. LUNGS: Clear. HEART: Regular rate and rhythm. ABDOMEN: Benign. EXTREMITIES: No clubbing, cyanosis or edema. Postop swelling appears normal. NEUROLOGIC: Slow to mentate, but intact. LABORATORY DATA: Her white count is 10.1, H&H of 10 and 31 and platelet count was noted to be 297. Sodium 137, potassium 3.6, BUN and creatinine of 7 and 0.6. Blood sugar is noted to be 114. ASSESSMENT: This is an 82-year-old female patient admitted to rehab with a working diagnosis of status post revision of a left total hip with internal complications. The patient has potential to make improvement. We instituted the following multidisciplinary therapies including to but not limited to physical, occupational, respiratory, speech, nutritional services, prosthetics and orthotics. Given her complex condition and risk for more complications, rehabilitation service cannot be provided at a low level of care such as a penitentiary facility. PLAN: 1. Admit to [facility] rehab for intensive inpatient therapy to include the following disciplines: A. Physical therapy to improve gait, all transfer skills and bed mobility to a modified independent level. B. Occupational therapy to improve activities of daily living to a modified independent level. C. Case management to assist with discharge planning and placement options. D. Nutrition to assist with nutritional needs. E. Rehabilitation nursing to assist in monitoring the patient's underlying medical conditions and to assist with any type of bowel or bladder management. 2. The patient's current medication and medical care will be continued. 3. The patient will be placed on standard fall precautions. 4. The patient's estimated length of stay is approximately 7-10 days. 5. Discuss this patient during care team staff meeting this week. TRANSINT:[id number] Voice Confirmation ID: [id number] DOCUMENT ID: [id number] DYLAN notes whether there has been none or any medical/functional change since admission: - No change since preadmission screen HISTORY AND PHYSICAL [id number] TYSON CHAPIN attests patient continues to be appropriate for IRF: - Continues to be appropriate. TEZ LEON MD at 1344 CC: [id number] DICTATION DATE: 09/13/17 0843 SKI TOPPER: 09/13/17 0917 ADM IN [id number] [place] [address]
[2017-09-12] MEDS ORDERED: PERCOCET 5-3251 TAB PO (18:14)
[2017-09-12] MEDS ORDERED: ELIQUIS2.5 MG PO (19:42)
[2017-09-12] MEDS ORDERED: ROBAXIN-750750 MG PO (19:43)
[2017-09-12] MEDS ORDERED: SENOKOT-S TABLE1 TAB PO (19:44)
[2017-09-12] MEDS ORDERED: DILAUDID4 MG PO (19:45)
[2017-09-12] MEDS ORDERED: BENADRYL25 MG PO (19:45)
[2017-09-12] MEDS ORDERED: ZOFRAN4 MG PO (19:47)
[2017-09-12] MEDS ORDERED: NALOXONE HC0.4 MG/M2 IV (19:47)
[2017-09-12] MEDS ORDERED: ULTRAM50 MG PO (19:48)
[2017-09-12] MEDS ORDERED: MIRALAX17 GM PO (19:53)
[2017-09-12] MEDS ORDERED: COLACE100 MG PO (19:53)
[2017-09-12 22:23] VITALS: BP 119/53; BMI 31.0
[2017-09-13 06:10] LABS: BASOPHILS 0.2 % (0-2); EOSINOPHILS 2.6 % (0-7); HEMATOCRIT 31.9 % (36.0-48.0); HEMOGLOBIN 10.1 g/dL (12-16); IMMATURE GRANULOCYTES 1.8 % (0-5); LYMPHOCYTES 15.2 % (15-50); MCH 26.6 pg (26.0-34.0); MCHC 31.7 g/dL (31.0-37.0); MCV 84.2 fL (80.0-100.0); MEAN PLATELET VOLUME 9.5 fL (7.4-10.4); MONOCYTES 10.1 % (2-11); NEUTROPHILS 70.1 % (40-80); RBC 3.79 10x6/uL (4.00-5.40); RDW 17.2 % (11.5-14.5); WBC 10.1 10x3/uL (4.8-10.8)
[2017-09-13 06:15] LABS: PLATELET COUNT 297 10x3/uL (130-400)
[2017-09-13 06:31] LABS: CALC OSMOLALITY 272 mosm/kg (275-300); CALCIUM 8.4 mg/dL (8.5-10.1); CARBON DIOXIDE 27.5 mmol/L (21.0-32.0); CHLORIDE - SERUM 101 mmol/L (98-107); CREATININE - SERUM 0.6 mg/dL (0.6-1.3); GLUCOSE 114 mg/dL (74-106); POTASSIUM - SERUM 3.6 mmol/L (3.5-5.1); SODIUM 137 mmol/L (136-145); eGFR NON AFRICAN AMERICAN > 90 mL/min (90-120)
[2017-09-13 06:42] LABS: UREA NITROGEN 7 mg/dL (7-18)
[2017-09-13 08:00] VITALS: BP 100/40
[2017-09-13 20:00] VITALS: BP 103/46
[2017-09-14 12:20] VITALS: BP 102/50
[2017-09-14 14:11] VITALS: BMI 30.9
[2017-09-14 19:00] VITALS: BP 94/49
[2017-09-15 07:57] LABS: BASOPHILS 0.1 % (0-2); EOSINOPHILS 1.9 % (0-7); HEMATOCRIT 30.9 % (36.0-48.0); HEMOGLOBIN 9.8 g/dL (12-16); IMMATURE GRANULOCYTES 2.1 % (0-5); LYMPHOCYTES 18.8 % (15-50); MCH 26.4 pg (26.0-34.0); MCHC 31.7 g/dL (31.0-37.0); MCV 83.3 fL (80.0-100.0); MEAN PLATELET VOLUME 9.3 fL (7.4-10.4); MONOCYTES 7.1 % (2-11); PLATELET COUNT 439 10x3/uL (130-400); RBC 3.71 10x6/uL (4.00-5.40); RDW 17.3 % (11.5-14.5); WBC 8.5 10x3/uL (4.8-10.8)
[2017-09-15 08:09] LABS: CALC OSMOLALITY 276 mosm/kg (275-300); CALCIUM 8.3 mg/dL (8.5-10.1); CARBON DIOXIDE 26.3 mmol/L (21.0-32.0); CHLORIDE - SERUM 104 mmol/L (98-107); CREATININE - SERUM 0.6 mg/dL (0.6-1.3); GLUCOSE 111 mg/dL (74-106); POTASSIUM - SERUM 3.5 mmol/L (3.5-5.1); SODIUM 139 mmol/L (136-145); UREA NITROGEN 8 mg/dL (7-18); eGFR NON AFRICAN AMERICAN > 90 mL/min (90-120)
[2017-09-15 09:32] VITALS: BP 119/57
[2017-09-15 19:05] VITALS: BP 142/70
[2017-09-16 06:58] VITALS: BP 105/47
[2017-09-16 13:07] LABS: HEMOGLOBIN 10.8 g/dL (12-16)
[2017-09-16 20:06] VITALS: BP 128/57
[2017-09-17 08:14] VITALS: BP 103/49
[2017-09-17 11:49] VITALS: Ht 157.5 cm; Wt 76.7 kg
[2017-09-17 21:22] VITALS: BP 118/73
[2017-09-18 07:11] VITALS: BP 96/44
[2017-09-18 19:46] VITALS: BP 101/41
[2017-09-19 08:00] VITALS: BP 117/48
[2017-09-19 19:18] VITALS: BP 102/53
[2017-09-20 05:56] LABS: BASOPHILS 0.4 % (0-2); EOSINOPHILS 2.2 % (0-7); HEMOGLOBIN 10.7 g/dL (12-16); LYMPHOCYTES 15.8 % (15-50); MCH 26.4 pg (26.0-34.0); MCHC 31.5 g/dL (31.0-37.0); MCV 83.7 fL (80.0-100.0); MEAN PLATELET VOLUME 9.2 fL (7.4-10.4); MONOCYTES 7.4 % (2-11); NEUTROPHILS 73.2 % (40-80); PLATELET COUNT 525 10x3/uL (130-400); RBC 4.06 10x6/uL (4.00-5.40); RDW 17.3 % (11.5-14.5); WBC 11.4 10x3/uL (4.8-10.8)
[2017-09-20 06:02] LABS: ANION GAP 13.4 mmol/L (8-16); CALCIUM 8.7 mg/dL (8.5-10.1); CARBON DIOXIDE 27.3 mmol/L (21.0-32.0); CREATININE - SERUM 0.8 mg/dL (0.6-1.3); POTASSIUM - SERUM 4.7 mmol/L (3.5-5.1)
[2017-09-20 08:26] VITALS: BP 114/57
[2017-09-20 19:13] VITALS: BP 105/53
[2017-09-21 08:04] VITALS: BP 104/48
[2017-09-21 20:00] VITALS: BP 94/58
[2017-09-22 06:38] LABS: ANION GAP 10.1 mmol/L (8-16); CALCIUM 8.7 mg/dL (8.5-10.1); CARBON DIOXIDE 28.9 mmol/L (21.0-32.0); CREATININE - SERUM 0.8 mg/dL (0.6-1.3)
[2017-09-22 06:43] LABS: BASOPHILS 0.7 % (0-2); EOSINOPHILS 3.2 % (0-7); HEMOGLOBIN 10.8 g/dL (12-16); IMMATURE GRANULOCYTES 0.8 % (0-5); LYMPHOCYTES 22.1 % (15-50); MCH 26.5 pg (26.0-34.0); MCHC 31.8 g/dL (31.0-37.0); MCV 83.3 fL (80.0-100.0); MEAN PLATELET VOLUME 9.1 fL (7.4-10.4); MONOCYTES 7.6 % (2-11); NEUTROPHILS 65.6 % (40-80); PLATELET COUNT 605 10x3/uL (130-400); RBC 4.08 10x6/uL (4.00-5.40); RDW 16.7 % (11.5-14.5); WBC 8.4 10x3/uL (4.8-10.8)
[2017-09-22 11:13] VITALS: BP 107/56
[2017-09-22 20:20] VITALS: BP 107/43
[2017-09-23 08:01] VITALS: BP 109/47
[2017-09-23 20:00] VITALS: BP 89/42
[2017-09-24 06:59] LABS: CALC OSMOLALITY 271 mosm/kg (275-300); CALCIUM 8.5 mg/dL (8.5-10.1); CARBON DIOXIDE 26.9 mmol/L (21.0-32.0); CHLORIDE - SERUM 101 mmol/L (98-107); CREATININE - SERUM 0.7 mg/dL (0.6-1.3); GLUCOSE 106 mg/dL (74-106); SODIUM 137 mmol/L (136-145); UREA NITROGEN 8 mg/dL (7-18); eGFR NON AFRICAN AMERICAN 85 mL/min (90-120)
[2017-09-24 07:57] LABS: BASOPHILS 0.2 % (0-2); EOSINOPHILS 3.1 % (0-7); HEMATOCRIT 34.5 % (36.0-48.0); HEMOGLOBIN 10.9 g/dL (12-16); IMMATURE GRANULOCYTES 0.4 % (0-5); LYMPHOCYTES 15.2 % (15-50); MCH 26.3 pg (26.0-34.0); MCHC 31.6 g/dL (31.0-37.0); MCV 83.1 fL (80.0-100.0); MEAN PLATELET VOLUME 9.5 fL (7.4-10.4); MONOCYTES 8.2 % (2-11); NEUTROPHILS 72.9 % (40-80); PLATELET COUNT 575 10x3/uL (130-400); RBC 4.15 10x6/uL (4.00-5.40); RDW 16.8 % (11.5-14.5); WBC 9.1 10x3/uL (4.8-10.8)
[2017-09-24 08:00] VITALS: BP 98/55
[2017-09-24 20:00] VITALS: BP 107/68
[2017-09-25 08:00] VITALS: BP 118/52
[2017-09-26 00:54] VITALS: BP 100/55
[2017-09-26 08:00] VITALS: BP 103/36
[2017-09-27] VITALS: BP 117/57
[2017-09-27 06:36] LABS: BASOPHILS 0.1 % (0-2); EOSINOPHILS 4.6 % (0-7); HEMATOCRIT 33.2 % (36.0-48.0); HEMOGLOBIN 10.2 g/dL (12-16); IMMATURE GRANULOCYTES 0.2 % (0-5); LYMPHOCYTES 17.4 % (15-50); MCH 25.6 pg (26.0-34.0); MCHC 30.7 g/dL (31.0-37.0); MCV 83.2 fL (80.0-100.0); MEAN PLATELET VOLUME 9.1 fL (7.4-10.4); MONOCYTES 6.2 % (2-11); NEUTROPHILS 71.5 % (40-80); RBC 3.99 10x6/uL (4.00-5.40); RDW 16.2 % (11.5-14.5); WBC 10.4 10x3/uL (4.8-10.8)
[2017-09-27 06:37] LABS: PLATELET COUNT 442 10x3/uL (130-400)
[2017-09-27 06:52] LABS: CALC OSMOLALITY 272 mosm/kg (275-300); CALCIUM 8.5 mg/dL (8.5-10.1); CARBON DIOXIDE 28.6 mmol/L (21.0-32.0); CHLORIDE - SERUM 100 mmol/L (98-107); CREATININE - SERUM 0.6 mg/dL (0.6-1.3); GLUCOSE 108 mg/dL (74-106); SODIUM 137 mmol/L (136-145); UREA NITROGEN 7 mg/dL (7-18); eGFR NON AFRICAN AMERICAN > 90 mL/min (90-120)
[2017-09-27 08:00] VITALS: BP 98/40
[2017-09-27 19:23] VITALS: BP 100/44
[2017-09-28 08:16] VITALS: BP 110/52
[2017-09-28 19:24] VITALS: BP 108/40
[2017-09-29 07:36] LABS: CALC OSMOLALITY 279 mosm/kg (275-300); CALCIUM 8.7 mg/dL (8.5-10.1); CARBON DIOXIDE 28.8 mmol/L (21.0-32.0); CHLORIDE - SERUM 102 mmol/L (98-107); CREATININE - SERUM 0.6 mg/dL (0.6-1.3); GLUCOSE 102 mg/dL (74-106); POTASSIUM - SERUM 3.8 mmol/L (3.5-5.1); SODIUM 141 mmol/L (136-145); UREA NITROGEN 9 mg/dL (7-18); eGFR NON AFRICAN AMERICAN > 90 mL/min (90-120)
[2017-09-29 07:40] LABS: BASOPHILS 0.2 % (0-2); EOSINOPHILS 9.6 % (0-7); HEMATOCRIT 32.7 % (36.0-48.0); HEMOGLOBIN 10.2 g/dL (12-16); IMMATURE GRANULOCYTES 0.2 % (0-5); MCHC 31.2 g/dL (31.0-37.0); MCV 83.2 fL (80.0-100.0); MEAN PLATELET VOLUME 9.6 fL (7.4-10.4); MONOCYTES 10.8 % (2-11); NEUTROPHILS 57.2 % (40-80); PLATELET COUNT 433 10x3/uL (130-400); RBC 3.93 10x6/uL (4.00-5.40); RDW 16.2 % (11.5-14.5); WBC 6.1 10x3/uL (4.8-10.8)
[2017-09-29 08:01] VITALS: BP 106/47
[2017-09-29 19:46] VITALS: BP 108/52
[2017-09-30 08:23] VITALS: BP 97/41
[2017-09-30 19:17] VITALS: BP 106/73
[2017-10-01 08:30] VITALS: BP 105/44
[2017-10-01] MEDS ORDERED: DURAGESIC1 PATCH .4 TRANSDERM (08:33)
[2017-10-01] MEDS ORDERED: OXYCODONE HCL5 MG PO (08:33)
== END 2017-10-01 11:05 | disposition home health service (06) | DRG 534 ==
LOC: D.REHAB 15:05
PROVIDERS: Emergency Medicine; Orthopaedic Surgery
DX: S72.92XA Unspecified fracture of left femur, initial encounter for closed fracture (principal); M96.810 Intraoperative hemorrhage and hematoma of a musculoskeletal structure complicating a musculoskeletal system procedure; D62 Acute posthemorrhagic anemia; M16.12 Unilateral primary osteoarthritis, left hip; I95.9 Hypotension, unspecified; D69.6 Thrombocytopenia, unspecified; R00.0 Tachycardia, unspecified; E78.5 Hyperlipidemia, unspecified; E55.9 Vitamin D deficiency, unspecified; K21.9 Gastro-esophageal reflux disease without esophagitis; F41.9 Anxiety disorder, unspecified; R52 Pain, unspecified; R53.1 Weakness; R53.83 Other fatigue

== ENCOUNTER → 2017-10-23 12:05 | Outpatient (CLI) | payer MEDICARE, OTHER ==
[2017-09-17 11:49] VITALS: BMI 30.9
[~2017-10-23 12:05] MED LIST changes: +BENADRYL25 MG PO; +COLACE100 MG PO; +DILAUDID4 MG PO; +DURAGESIC1 PATCH .4 TRANSDERM; +MIRALAX17 GM PO; +NALOXONE HC0.4 MG/M2 IV; +PERCOCET 5-3251 TAB PO; +ROBAXIN-750750 MG PO; +SENOKOT-S TABLE1 TAB PO; +ULTRAM50 MG PO; +ZOFRAN4 MG PO
[2017-10-23 12:18] LABS: BASOPHILS 0.1 % (0-2); EOSINOPHILS 1.8 % (0-7); HEMATOCRIT 36.2 % (36.0-48.0); HEMOGLOBIN 11.6 g/dL (12-16); IMMATURE GRANULOCYTES 0.3 % (0-5); MCH 25.2 pg (26.0-34.0); MCV 78.5 fL (80.0-100.0); MEAN PLATELET VOLUME 11.1 fL (7.4-10.4); NEUTROPHILS 58.8 % (40-80); PLATELET COUNT 256 10x3/uL (130-400); RBC 4.61 10x6/uL (4.00-5.40); RDW 16.4 % (11.5-14.5); WBC 7.2 10x3/uL (4.8-10.8)
[2017-10-23 12:21] LABS: ANION GAP 12.4 mmol/L (8-16); C-REACTIVE PROTEIN 1.8 mg/dL (0.0-0.9); CALCIUM 8.8 mg/dL (8.5-10.1); CARBON DIOXIDE 24.5 mmol/L (21.0-32.0); CREATININE - SERUM 0.8 mg/dL (0.6-1.3); POTASSIUM - SERUM 3.9 mmol/L (3.5-5.1)
[2017-10-23 13:30] LABS: ERYTHROCYTE SEDIMENTATION RATE 9 mm/hr (0-30)
== END | disposition home or self-care (01) ==
LOC: D.LABREF 12:05
PROVIDERS: Orthopaedic Surgery
DX: D64.9 Anemia, unspecified (principal); S72.002D Fracture of unspecified part of neck of left femur, subsequent encounter for closed fracture with routine healing; E55.9 Vitamin D deficiency, unspecified

== ENCOUNTER → 2017-10-27 09:59 | Outpatient (CLI) | payer MEDICARE, OTHER ==
[2017-09-17 11:49] VITALS: BMI 30.9
== END | disposition home or self-care (01) ==
LOC: D.CT 09:59
DX: Z96.649 Presence of unspecified artificial hip joint (principal)

== ENCOUNTER → 2018-10-11 17:45 | Outpatient (CLI) | payer MEDICARE, OTHER ==
[2017-09-17 11:49] VITALS: BMI 30.9
== END | disposition home or self-care (01) ==
LOC: D.MAMMO 14:45
PROVIDERS: ATTEND Family Medicine
DX: Z12.31 Encounter for screening mammogram for malignant neoplasm of breast (principal)

== ENCOUNTER 2019-02-25 15:29 | Emergency (ER) | payer MEDICARE, OTHER ==
[~2019-02-25] VITALS: Ht 157.5 cm; Wt 68.2 kg
[2019-02-25 15:32] VITALS: Ht 157.5 cm; Wt 68.2 kg
[2019-02-25] MEDS ORDERED: HYDROCODON-ACE1 EAC7 PO (16:43)
[2019-02-25 16:53] VITALS: BP 113/48
== END 2019-02-25 16:53 | disposition home or self-care (01) ==
LOC: D.ER 15:29
DX: M54.2 Cervicalgia (principal); S09.90XA Unspecified injury of head, initial encounter; W18.31XA Fall on same level due to stepping on an object, initial encounter; Y93.89 Activity, other specified; Y92.89 Other specified places as the place of occurrence of the external cause

== ENCOUNTER → 2019-11-30 23:56 | Outpatient (CLI) | payer MEDICARE, OTHER ==
[2019-02-25 15:32] VITALS: BMI 27.5
[~2019-11-30 23:56] MED LIST changes: +HYDROCODON-ACE1 EAC7 PO
== END ==
LOC: D.MAMMO 10:30
PROVIDERS: ATTEND Family Medicine
DX: Z12.31 Encounter for screening mammogram for malignant neoplasm of breast (principal)

== ENCOUNTER 2020-03-13 05:39 | Day surgery (SDC) | payer MEDICARE, OTHER ==
[2020-03-11 09:28] LABS: BASOPHILS 0.3 % (0-2); EOSINOPHILS 4.3 % (0-7); HEMOGLOBIN 11.9 g/dL (12-16); LYMPHOCYTES 32.1 % (15-50); MCH 23.1 pg (26.0-34.0); MCHC 31.3 g/dL (31.0-37.0); MCV 73.8 fL (80.0-100.0); MEAN PLATELET VOLUME 9.7 fL (7.4-10.4); MONOCYTES 7.2 % (2-11); NEUTROPHILS 56.1 % (40-80); PLATELET COUNT 248 10x3/uL (130-400); RBC 5.15 10x6/uL (4.00-5.40); RDW 15.3 % (11.5-14.5); WBC 6.3 10x3/uL (4.8-10.8)
[2020-03-11 09:34] LABS: ANION GAP 9.8 mmol/L (8-16); CALCIUM 9.1 mg/dL (8.5-10.1); CARBON DIOXIDE 30.8 mmol/L (21.0-32.0); CREATININE - SERUM 0.8 mg/dL (0.6-1.3); POTASSIUM - SERUM 3.6 mmol/L (3.5-5.1)
[~2020-03-13] VITALS: Ht 157.5 cm; Wt 70.8 kg
--- NOTE | ~2020-03-13 | OP ---
PATIENT NAME: TYSON CHAPIN MEDICAL RECORD: [id number] :39 LOCATION:[facility] ADMISSION DATE: SURGEON: J LUIS QUINTANILLA DPM DATE OF OPERATION: 03/13/2020 PREOPERATIVE DIAGNOSIS: HAV, right foot. POSTOPERATIVE DIAGNOSIS: HAV, right foot. PROCEDURE: Tahir bunionectomy, right foot. ANESTHESIA: General with local infiltrate utilizing 17 mL of 1:1 mix of lidocaine and Marcaine plain around the first ray of the right foot. HEMOSTASIS: Right ankle tourniquet at 250 mmHg. PREOPERATIVE DETAILS: The patient was taken to the OR and placed on the operating table in a supine position. This was followed by induction of general anesthesia and infiltration of local anesthetic. The right extremity was then prepped and draped in usual aseptic technique followed by exsanguination and inflation of tourniquet. A 15 blade was used to create a 3.5 to 4 cm linear incision over the dorsal aspect of the first MPJ. The incision was deepened down through subcutaneous tissue to the first MPJ capsule. An inverted L capsulotomy was performed and the medial capsular flap was reflected and the head of the first metatarsal was delivered. A sagittal saw was used to resect the medial eminence. Attention was directed to the first interspace where a lateral release was performed. Attention was then redirected to the medial aspect of the head of first metatarsal where a sagittal saw was used to create a V osteotomy through and through. The capital fragment was translocated laterally and fixated with a 0.062-inch K-wire. A second K-wire was then placed to add stability. The pins were cut. The medial redundant shelf was resected with a sagittal saw. The wound was flushed. The capsule was repaired with 2-0 Vicryl. The subcutaneous tissue was reapproximated with 4-0 Rapide and the skin was closed with 4-0 Rapide in a subcuticular technique followed by Dermabond. Adaptic, 4 x 4, and Conform were used to dress the wound followed by Coban. Tourniquet was deflated. POSTOPERATIVE DETAILS: The patient tolerated the procedure well and left the OR with vital signs stable and vascular status at preoperative levels. The patient was transported to recovery per anesthesia in stable condition. NTS:[id number] Voice Confirmation ID: [id number] DOCUMENT ID: [id number] J LUIS QUINTANILLA DPM CC: [id number] DICTATION DATE: 03/13/20 08 HUSKER OPERATOR: 03/13/201810 [facility] 03/13/20 [id number] [facility] [place] [address]
[~2020-03-13 05:39] MED LIST changes: +PRESSOR VISION; +VITAMIN D2000 UNI1 PO
[2020-03-13 06:05] VITALS: BP 115/68; Ht 157.5 cm; Wt 70.8 kg
--- NOTE | 2020-03-13 07:18 | NUR ---
0705 DR QUINTANILLA BLOCKING FOOT WITH LOCAL, [facility].
== END 2020-03-13 09:45 | disposition home or self-care (01) ==
LOC: D.OPS 05:39
PROVIDERS: Anesthesiology; ATTEND Podiatrist
DX: M20.11 Hallux valgus (acquired), right foot (principal)

== ENCOUNTER 2020-12-17 14:00 | Outpatient (CLI) | payer MEDICARE, OTHER ==
[2020-03-13 06:05] VITALS: BMI 28.8
== END 2020-12-17 23:59 | disposition home or self-care (01) ==
LOC: D.MAMMO 14:00
PROVIDERS: ATTEND Family Medicine
DX: Z12.31 Encounter for screening mammogram for malignant neoplasm of breast (principal)